=== PATIENT | female | born 1960 | race African-American/Black ===

== ENCOUNTER 2017-12-14 12:31 | Observation (INO) | payer OTHER ==
[2017-12-14] VITALS (9 sets, daily range): BP systolic 123–249; BP diastolic 85–151; PULSE 62–100; RESP 14–16; TEMP 98.5; O2SAT 98–100
[~2017-12-14] VITALS: Ht 162.6 cm; Wt 58.1 kg
[~2017-12-14 12:31] MED LIST: 1-ME1LIQ PO; CLON.1 PO; FAMO20TA2 PO; HYDR-3533 PO; HYDR12.56 PO; LEVE500 PO; METH750T2 PO; NIFE60TA8 PO
[2017-12-14] MEDS ORDERED: niCARdipine INJ 25 MG in SODIUM CHLOR 0.9% 250 ML INJ 240 ML IV PRN (12:45)
[2017-12-14] MEDS ORDERED: SODIUM CHLORIDE 0.9% FLUSH 10 ML FLUSH IVF PRN (12:45)
[2017-12-14] MEDS ORDERED: HYDR-3516 PO (13:00)
[2017-12-14 13:04] LABS: AUTOMATED NEUTROPHIL # 1.8 TH/MM3 (1.8-7.7); BASOPHIL % 0.5 % (0.0-2.0); EOSINOPHIL # 0.1 TH/MM3 (0-0.4); EOSINOPHIL % 1.4 % (0.0-4.0); HEMATOCRIT 35.5 % (35.0-46.0); HEMOGLOBIN 12.2 GM/DL (11.6-15.3); LYMPH % 46.5 % (9.0-44.0); LYMPHOCYTE # 1.9 TH/MM3 (1.0-4.8); MEAN CELL VOLUME 90.7 FL (80.0-100.0); MEAN CORPUSCULAR HEMOGLOBIN 31.2 PG (27.0-34.0); MEAN CORPUSCULAR HGB CONC 34.4 % (32.0-36.0); MEAN PLATELET VOLUME 7.3 FL (7.0-11.0); MONO % 8.3 % (0.0-8.0); MONOCYTE # 0.3 TH/MM3 (0-0.9); NEUT % 43.3 % (16.0-70.0); PLATELET COUNT 205 TH/MM3 (150-450); RED BLOOD COUNT 3.91 MIL/MM3 (4.00-5.30); RED CELL DISTRIBUTION WIDTH 13.9 % (11.6-17.2); WHITE BLOOD COUNT 4.2 TH/MM3 (4.0-11.0)
[2017-12-14 13:10] LABS: INTERNATIONAL NORMALIZED RATIO 1.1 RATIO; PROTHROMBIN TIME - PATIENT 10.7 SEC (9.8-11.6)
--- NOTE | 2017-12-14 13:19 | PD ---
HPI Chief Complaint: Neuro Symptoms/ Deficits Time Seen by Provider: 12:36 Travel History International Travel<30 days: No Contact w/Intl Traveler<30days: No Traveled to known affect area: No History of Present Illness HPI 57-year-old female was brought in emergently from triage for a aphasia and possible strokelike symptoms. Patient was stuttering and seemed anxious. She was unable to give a significant history. The time of onset initially was unknown since there was no friend or family member around her. Patient was severely hypertensive upon arrival with systolic blood pressure of over 250. Upon asking patient said she did have a headache as well. Her past medical record was checked and patient was admitted on 11/06/2017 for intracranial bleed related to hypertension. Patient was discharged a few days ago. Apparently she was at patient assistance trying to get an appointment and was telling them that she has not been taking her medication at which point they noticed that she has started to stutter. They brought her over to triage. Patient was not complaining of any unilateral weakness. [facility] Past Medical History Narrative Medical List of her past medical, surgical, social and family history reviewed from the nursing note. Cardiovascular Problems: Yes Cerebrovascular Accident: Yes Gastrointestinal Disorders: Yes (Diverticulitis) Hypertension: Yes Tetanus Vaccination: Unknown Influenza Vaccination: No ?: Not Past Surgical History Abdominal Surgery: Yes (sygmoid ) Other Surgery: Yes (partial colectomy, lap band) Social History Alcohol Use: No Tobacco Use: Yes Substance Use: No Allergies-Medications (Allergen,Severity, Reaction): Coded Allergies: penicillin G (Unverified Allergy, Unknown, 12/14/17) Comments List of her allergies reviewed from the nursing note. Reported Meds & Prescriptions Reported Meds & Active Scripts Active Narrative Medication List of her home medications reviewed from the nursing note. Review of Systems ROS Limitations: Altered Mental Status Except as stated in HPI: all other systems reviewed are Neg Physical Exam Narrative GENERAL: Awake, confused, difficulty speaking, anxious SKIN: Focused skin assessment warm/dry. HEAD: Atraumatic. Normocephalic. EYES: Pupils equal and round. No scleral icterus. No injection or drainage. ENT: No nasal bleeding or discharge. Mucous membranes pink and moist. NECK: Trachea midline. No JVD. CARDIOVASCULAR: Regular rate and rhythm. No murmur appreciated. RESPIRATORY: No accessory muscle use. Clear to auscultation. Breath sounds equal bilaterally. GASTROINTESTINAL: Abdomen soft, non-tender, nondistended. Hepatic and splenic margins not palpable. MUSCULOSKELETAL: No obvious deformities. No clubbing. No cyanosis. No edema. NEUROLOGICAL: Awake but appears to be confused. No obvious cranial nerve deficits. Increased tone of all 4 extremities with limited movement. Stuttering speech. PSYCHIATRIC: appears to be extremely anxious Data Data Last Documented VS Orders Orders Ct Brain W/O Iv Contrast(Rout) (12/14/17 ) Nicardipine Inj (Cardene Inj) (12/14/17 12:45) Electrocardiogram (12/14/17 12:37) Prothrombin Time / Inr (Pt) (12/14/17 12:37) Complete Blood Count With Diff (12/14/17 12:37) Basic Metabolic Panel (Bmp) (12/14/17 12:37) Troponin I (12/14/17 12:37) Urinalysis - C+S If Indicated (12/14/17 12:37) Chest, Single Ap (12/14/17 12:37) Ecg Monitoring (12/14/17 12:37) Iv Access Insert/Monitor (12/14/17 12:37) Oximetry (12/14/17 12:37) Sodium Chloride 0.9% Flush (Ns Flush) (12/14/17 12:45) Drug Screen, Random Urine (12/14/17 13:26) Potassium Chloride (Kcl) (12/14/17 13:45) Labs Laboratory Tests Test 12/14/17 12:35 12/14/17 13:40 White Blood Count 4.2 TH/MM3 Red Blood Count 3.91 MIL/MM3 Hemoglobin 12.2 GM/DL Hematocrit 35.5 % Mean Corpuscular Volume 90.7 FL Mean Corpuscular Hemoglobin 31.2 PG Mean Corpuscular Hemoglobin Concent 34.4 % Red Cell Distribution Width 13.9 % Platelet Count 205 TH/MM3 Mean Platelet Volume 7.3 FL Neutrophils (%) (Auto) 43.3 % Lymphocytes (%) (Auto) 46.5 % Monocytes (%) (Auto) 8.3 % Eosinophils (%) (Auto) 1.4 % Basophils (%) (Auto) 0.5 % Neutrophils # (Auto) 1.8 TH/MM3 Lymphocytes # (Auto) 1.9 TH/MM3 Monocytes # (Auto) 0.3 TH/MM3 Eosinophils # (Auto) 0.1 TH/MM3 Basophils # (Auto) 0.0 TH/MM3 CBC Comment DIFF FINAL Differential Comment Prothrombin Time 10.7 SEC Prothromb Time International Ratio 1.1 RATIO Blood Urea Nitrogen 9 MG/DL Creatinine 0.72 MG/DL Random Glucose 91 MG/DL Calcium Level 9.4 MG/DL Sodium Level 141 MEQ/L Potassium Level 3.1 MEQ/L Chloride Level 106 MEQ/L Carbon Dioxide Level 28.1 MEQ/L Anion Gap 7 MEQ/L Estimat Glomerular Filtration Rate 102 ML/MIN Troponin I LESS THAN 0.02 NG/ML Urine Color LIGHT-YELLOW Urine Turbidity CLEAR Urine pH 7.0 Urine Specific [place] 1.008 Urine Protein NEG mg/dL Urine Glucose (UA) NEG mg/dL Urine Ketones NEG mg/dL Urine Occult Blood NEG Urine Nitrite NEG Urine Bilirubin NEG Urine Urobilinogen LESS THAN 2.0 MG/DL Urine Leukocyte Esterase NEG Urine RBC LESS THAN 1 /hpf Urine WBC 1 /hpf Urine Squamous Epithelial Cells <1 /hpf Urine Hyaline Casts 1 /lpf Microscopic Urinalysis Comment CATH-CULT NOT IND Urine Opiates Screen NEG Urine Barbiturates Screen NEG Urine Amphetamines Screen NEG Urine Benzodiazepines Screen NEG Urine Cocaine Screen NEG Urine Cannabinoids Screen NEG MDM Medical Decision Making Medical Screen Exam Complete: Yes Emergency Medical Condition: Yes Medical Record Reviewed: Yes Interpretation(s) Twelve-lead EKG was reviewed by me. Normal sinus rhythm, left axis deviation, diffuse nonspecific ST-T wave changes, LVH by voltage criteria. Heart rate of 68 bpm. Differential Diagnosis Intracranial bleed, hypertensive encephalopathy, hypertensive crisis, electrolyte abnormality Narrative Course 1:25 PM upon assessment patient symptoms did not present like stroke. I did not call a stroke alert. Awaiting for the CT to be read. Awaiting further blood test results. Patient was started on Cardene drip. She would eventually have to be admitted. Patient has started to talk normal at this point once the blood pressure started to come down. 2:[address] is read as negative. Patient has started to speak better and moving all 4 extremities. She continues to be on the Cardene drip. I discussed the case with the hospitalist was except that the patient. Critical Care Narrative Aggregate critical care time was 45 minutes. Time to perform other separately billable procedures was not included in the critical care time. My time did not include minutes spent treating any other patients simultaneously or on activities that did not directly contribute to the patient's treatment. The services I provided to this patient were to treat and/or prevent clinically significant deterioration that could result in: Hypertensive encephalopathy, hypertensive emergency, Emelyn malone I provided critical care services requiring my management, as noted below: Chart data review, documentation time, medication orders and management, vital sign assessments/reviewing monitor data, ordering and reviewing lab tests, ordering and interpreting/reviewing x-rays and diagnostic studies, care of the patient and discussion of the patient with the admitting physicians. Procedures EKG Prior to Arrival: No Diagnosis Primary Impression: Hypertensive emergency Additional Impressions: Hypertensive encephalopathy History of medication noncompliance Admitting Information Admitting Physician Requests: Admit Scripts Famotidine (Famotidine) 20 Mg Tab 20 MG PO Q12HR for stomach, #60 TAB 1 Refill Prov: Angie Salguero 12/15/17 Levetiracetam (Keppra) 500 Mg Tab 1000 MG PO Q12HR for seizure prevention, #60 TAB 1 Refill Prov: Angie Salguero 12/15/17 Nifedipine ER 24 HR (Nifedipine ER 24 HR) 60 Mg Tab 60 MG PO Q12HR for blood pressure, #60 TAB 1 Refill Prov: Angie Salguero 12/15/17 Lauren Taylor MD Dec 14, 2017 13:19
[2017-12-14 13:29] LABS: BICARBONATE 28.1 MEQ/L (21.0-32.0); BLOOD UREA NITROGEN 9 MG/DL (7-18); CALCIUM 9.4 MG/DL (8.5-10.1); CHLORIDE 106 MEQ/L (98-107); CREATININE 0.72 MG/DL (0.50-1.00); GLOMERULAR FILTRATION RATE 102 ML/MIN (>89); GLUCOSE,RANDOM 91 MG/DL (74-106); SODIUM (NA) 141 MEQ/L (136-145)
[2017-12-14 13:33] LABS: TROPONIN I LESS THAN 0.02 NG/ML (0.02-0.05)
[2017-12-14] MEDS ORDERED: POTASSIUM CHLORIDE 20 MEQ CONTROLLED RELEASE TAB PO ONE (13:45)
--- NOTE | 2017-12-14 14:16 | RADRPT ---
EXAM DATE/TIME: 12/14/2017 12:46 [facility] COMPARISON: CT BRAIN W/O CONTRAST, November 07, 2017, 10:50. INDICATIONS : Altered mental status. Weakness. Hypertension. RADIATION DOSE: 56.35 CTDIvol (mGy) MEDICAL HISTORY : Hypertension. Diverticulosis. Recent brain hemorrhage. SURGICAL HISTORY : Partial colectomy. ENCOUNTER: Initial ACUITY: 1 day PAIN SCALE: 4/10 LOCATION: cranial TECHNIQUE: Multiple contiguous axial images were obtained of the head. Using automated exposure control and adj ustment of the mA and/or kV according to patient size, radiation dose was kept as low as reasonably a chievable to obtain optimal diagnostic quality images. DICOM format image data is available electro nically for review and comparison. FINDINGS: There is a small focus of encephalomalacia in the left temporal region. Patchy mild diminished attenu ation deep white matter which appears chronic and benign. No evidence of intracranial hemorrhage or m ass. Nothing to suggest acute infarction. The extracranial structures are benign and intact. CONCLUSION: No acute intracranial findings. Roberto Herrera MD on December 14, 2017 at 12:53 Board Certified Radiologist. This report was verified electronically.
--- NOTE | 2017-12-14 14:55 | RADRPT ---
EXAM DATE/TIME: 12/14/2017 13:07 [facility] COMPARISON: CHEST SINGLE AP, November 11, 2017, 9:49. INDICATIONS : Weakness, short of breath MEDICAL HISTORY : None. SURGICAL HISTORY : None. ENCOUNTER: Initial ACUITY: 1 day PAIN SCORE: Non-responsive. LOCATION: Bilateral chest FINDINGS: Improved aeration in the left lower lung zone. No new focal pleural-parenchymal opacities. Cardiomedi astinal contours are stable. Remainder of exam is unchanged. CONCLUSION: 1. Improved left lung base atelectasis. 2. No acute abnormality. Guevara Smith MD on December 14, 2017 at 14:52 Board Certified Radiologist. This report was verified electronically.
[2017-12-14] MEDS ORDERED: NALOXONE HCL 0.4 MG/ML AMP IV PUSH PRN (15:00)
[2017-12-14] MEDS ORDERED: NIFEdipine 60 MG SUSTAINED RELEASE TAB PO ONE (15:00)
[2017-12-14] MEDS ORDERED: SODIUM CHLORIDE 0.9% FLUSH 10 ML FLUSH IV FLUSH PRN (15:00)
[2017-12-14] MEDS ORDERED: MAGNESIUM HYDROXIDE SUSP 30 ML CUP PO PRN (15:00)
[2017-12-14] MEDS ORDERED: cloNIDine HCL 0.1 MG TAB PO PRN (15:00)
[2017-12-14] MEDS ORDERED: ONDANSETRON HCL 4 MG/2 ML VIAL IVP PRN (15:00)
[2017-12-14] MEDS ORDERED: ACETAMINOPHEN 325 MG TAB PO PRN (15:00)
--- NOTE | 2017-12-14 15:03 | HHI.HP ---
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 Patient was recently admitted [place] [facility] on [place]/[facility]/17 with hemorrhagic CVA. Patient was DC 11/14/17 to rehab then DC from rehab to home about two weeks ago. Patient was DC with pill packs. Patient reports that she ran out of medication Wednesday. Patient was at patient assistance today trying to obtain help with getting medications when she began to have a headache, confusion and slurred speech. In the ER patient was started on a Cardene drip and neurological symptoms resolve. At this time patient is tearful and frustrated that she is having such a hard time obtaining her medications. Patient reports generalized headache is still present but improving. Patient denies new focal weakness, SOB, chest pain, N/V/D/C, fevers or chills. CT of the head reviewed: No acute intracranial findings Review of Systems Constitutional: DENIES: Fatigue, Fever, Chills Respiratory: DENIES: Cough, Sputum production, Shortness of breath Cardiovascular: DENIES: Chest pain, Dyspnea on Exertion, Lower Extremity Edema Gastrointestinal: DENIES: Abdominal pain, Constipation, Diarrhea, Nausea, Vomiting Musculoskeletal: COMPLAINS OF: Back pain, DENIES: Joint pain, Muscle aches Neurologic: COMPLAINS OF: Abnormal gait, Headache, Localized weakness (RLE weakness residual from preious CVA) Psychiatric: COMPLAINS OF: Confusion, DENIES: Anxiety, Depression Past Family Social History Past Medical History 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, HTN, diverticulitis with sigmoidectomy and L4-L5 disc disease and CHF resolved after bariatric surgery Past Surgical History bilateral salpingectomy secondary to ectopic x 2 Gastric bypass [id number] 2009 in [place] sigmoidectomy right ankle bone spur removed Reported Medications Famotidine 20 Mg Tab 20 Mg PO Q12HR Keppra (Levetiracetam) 500 Mg Tab 1,000 Mg PO Q12HR Nifedipine ER 24 HR (Nifedipine) 60 Mg Tab 60 Mg PO Q12HR Catapres (Clonidine) 0.1 Mg Tab 0.1 Mg PO Q6H PRN Hydrocodone-Acetaminophen 5-325 mg Tab 1 Tab PO Q6H PRN Allergies: Coded Allergies: penicillin G (Unverified Allergy, Unknown, 12/14/17) Family History noncontributory Social History Tobacco use since age 14-15 0.5 PPD now trying to quit denies ETOH use Physical Exam Vital Signs Vital Signs Date Time Temp Pulse Resp B/P (MAP) Pulse Ox O2 Delivery O2 Flow Rate FiO2 12/14/17 14:25 62 16 139/88 (105) 98 Room Air 12/14/17 13:31 65 14 151/95 (113) 98 Room Air 12/14/17 13:19 100 249/151 12/14/17 12:54 65 16 195/123 (147) 98 Room Air 12/14/17 12:47 98.5 100 16 249/151 (183) 100 Physical Exam GENERAL: This is a well-nourished, well-developed patient, tearful SKIN: No rashes, ecchymoses or lesions. Cool and dry. HEAD: Atraumatic. Normocephalic. No temporal or scalp tenderness. EYES: Extraocular motions intact. No scleral icterus. No injection or drainage. CARDIOVASCULAR: Regular rate and rhythm RESPIRATORY: Clear to auscultation. Breath sounds equal bilaterally. GASTROINTESTINAL: Abdomen soft, non-tender, nondistended. MUSCULOSKELETAL: Extremities without clubbing, cyanosis, or edema. No joint tenderness, effusion, or edema noted. No calf tenderness. Negative Homans sign bilaterally. NEUROLOGICAL: Awake and alert. Motor and sensory grossly within normal limits. Five out of 5 muscle strength in all muscle groups, with the exception of RLE which is residual from prior CVA. Normal speech. Laboratory Laboratory Tests Test 12/14/17 12:35 12/14/17 13:40 White Blood Count 4.2 Red Blood Count 3.91 Hemoglobin 12.2 Hematocrit 35.5 Mean Corpuscular Volume 90.7 Mean Corpuscular Hemoglobin 31.2 Mean Corpuscular Hemoglobin Concent 34.4 Red Cell Distribution Width 13.9 Platelet Count 205 Mean Platelet Volume 7.3 Neutrophils (%) (Auto) 43.3 Lymphocytes (%) (Auto) 46.5 Monocytes (%) (Auto) 8.3 Eosinophils (%) (Auto) 1.4 Basophils (%) (Auto) 0.5 Neutrophils # (Auto) 1.8 Lymphocytes # (Auto) 1.9 Monocytes # (Auto) 0.3 Eosinophils # (Auto) 0.1 Basophils # (Auto) 0.0 CBC Comment DIFF FINAL Differential Comment Prothrombin Time 10.7 Prothromb Time International Ratio 1.1 Blood Urea Nitrogen 9 Creatinine 0.72 Random Glucose 91 Calcium Level 9.4 Sodium Level 141 Potassium Level 3.1 Chloride Level 106 Carbon Dioxide Level 28.1 Anion Gap 7 Estimat Glomerular Filtration Rate 102 Troponin I LESS THAN 0.02 Urine Opiates Screen NEG Urine Barbiturates Screen NEG Urine Amphetamines Screen NEG Urine Benzodiazepines Screen NEG Urine Cocaine Screen NEG Urine Cannabinoids Screen NEG Result Diagram: 12/14/17 1235 12/14/17 1235 Imaging Last Impressions Chest X-Ray 12/14/17 1237 Signed Impressions: Service Date/Time: Thursday, December 14, 2017 13:07 - CONCLUSION: 1. Improved left lung base atelectasis. 2. No acute abnormality. Guevara Smith MD Head CT 12/14/17 0000 Signed Impressions: Service Date/Time: Thursday, December 14, 2017 12:46 - CONCLUSION: No acute intracranial findings. MD Patience Snyderi VTE Risk Assessment Caprini VTE Risk Assessment: No/Low Risk (score <= 1) Caprini Risk Assessment Model Point Value = 1 Point Value = 2 Point Value = 3 Point Value = 5 Age 41-60 Minor surgery BMI > 25 kg/m2 Swollen legs Varicose veins or History of unexplained or recurrent spontaneous Oral contraceptives or hormone replacement Sepsis (< 1 month) Serious lung disease, including pneumonia (< 1 month) Abnormal pulmonary function Acute myocardial infarction Congestive heart failure (< 1 month) History of inflammatory bowel disease Medical patient at bed rest Age 61-74 Arthroscopic surgery Major open surgery (> 45 min) Laparoscopic surgery (> 45 min) Malignancy Confined to bed (> 72 hours) Immobilizing plaster cast Central venous access Age >= 75 History of VTE Family history of VTE Factor V Leiden Prothrombin [id number] Lupus anticoagulant Anticardiolipin antibodies Elevated serum homocysteine Heparin-induced thrombocytopenia Other congenital or acquired thrombophilia Stroke (< 1 month) Elective arthroplasty Hip, pelvis, or leg fracture Acute spinal cord injury (< 1 month) Prophylaxis Regimen Total Risk Factor Score Risk Level Prophylaxis Regimen 0-1 Low Early ambulation 2 Moderate Order ONE of the following: *Sequential Compression Device (SCD) *Heparin 5000 units SQ BID 3-4 Higher Order ONE of the following medications: *Heparin 5000 units SQ TID *Enoxaparin/Lovenox 40 mg SQ daily (WT < 150 kg, CrCl > 30 mL/min) *Enoxaparin/Lovenox 30 mg SQ daily (WT < 150 kg, CrCl > 10-29 mL/min) *Enoxaparin/Lovenox 30 mg SQ BID (WT < 150 kg, CrCl > 30 mL/min) AND/OR *Sequential Compression Device (SCD) 5 or more Highest Order ONE of the following medications: *Heparin 5000 units SQ TID (Preferred with Epidurals) *Enoxaparin/Lovenox 40 mg SQ daily (WT < 150 kg, CrCl > 30 mL/min) *Enoxaparin/Lovenox 30 mg SQ daily (WT < 150 kg, CrCl > 10-29 mL/min) *Enoxaparin/Lovenox 30 mg SQ BID (WT < 150 kg, CrCl > 30 mL/min) AND *Sequential Compression Device (SCD) Assessment and Plan Problem List: (1) Hypertensive encephalopathy ICD Codes: I67.4 - Hypertensive encephalopathy Status: Acute Plan: This is a 57 year old AA female patient with a past medical history which includes 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 Patient was DC 11/14/17 to rehab then DC from rehab to home about two weeks ago. Patient was DC with pill packs. Patient reports that she ran out of medication Wednesday. Patient was at patient assistance today trying to obtain help with getting medications when she began to have a headache , confusion and slurred speech. In the ER patient was started on a Cardene drip and neurological symptoms resolve. Hypertensive urgency HTN (hypertension) - Nicardipine drip initiated in ED - initiate nifedipine XL 60 mg PO BID, wean Cardene drip to off goal SBP < 150 - clonidine 0.1 MG PO as needed Hemorrhagic stroke 11/06/18 - Due to uncontrolled hypertension - CT reviewed and reveals: No acute intracranial findings - Monitor serial neuro checks Seizure - Due to above - Keppra loaded in the ED, Continue Keppra 1 g every 12 hours DVT GI prophylaxis - SASCHA/SCDs - No pharmacological DVT prophylaxis due to recent ICH 11/06/17 (2) HTN (hypertension) ICD Codes: I10 - Essential (primary) hypertension (3) Seizure ICD Codes: R56.9 - Unspecified convulsions Vianney Onofre Dec 14, 2017 15:03
[2017-12-14] MEDS: ACETAMINOPHEN/HYDROcodone 325 MG/5 MG TAB PO PRN (19:58)
[2017-12-14] MEDS: SODIUM CHLORIDE 0.9% FLUSH 10 ML FLUSH IV FLUSH SCH (21:12)
[2017-12-14] MEDS: FAMOTIDINE 20 MG TAB PO SCH (21:40)
[2017-12-14] MEDS: levETIRAcetam 500 MG TAB PO SCH (21:40)
[2017-12-14] MEDS: DOCUSATE SODIUM 50 MG/SENNA 8.6 MG TAB PO SCH (21:52)
[2017-12-14] MEDS: NIFEdipine 60 MG SUSTAINED RELEASE TAB PO SCH (21:52)
[2017-12-15] VITALS (13 sets, daily range): BP systolic 105–147; BP diastolic 69–93; PULSE 48–64; RESP 16–20; TEMP 97.8–98.7; O2SAT 96–100
[2017-12-15] MEDS: ACETAMINOPHEN/HYDROcodone 325 MG/5 MG TAB PO PRN ×2 (01:50→16:56)
[2017-12-15 08:25] LABS: AUTOMATED NEUTROPHIL # 0.8 TH/MM3 (1.8-7.7); BASOPHIL % 0.8 % (0.0-2.0); EOSINOPHIL # 0.1 TH/MM3 (0-0.4); EOSINOPHIL % 2.8 % (0.0-4.0); HEMATOCRIT 32.7 % (35.0-46.0); HEMOGLOBIN 11.2 GM/DL (11.6-15.3); LYMPH % 57.6 % (9.0-44.0); LYMPHOCYTE # 1.6 TH/MM3 (1.0-4.8); MEAN CELL VOLUME 89.7 FL (80.0-100.0); MEAN CORPUSCULAR HEMOGLOBIN 30.6 PG (27.0-34.0); MEAN CORPUSCULAR HGB CONC 34.1 % (32.0-36.0); MEAN PLATELET VOLUME 7.5 FL (7.0-11.0); MONOCYTE # 0.3 TH/MM3 (0-0.9); NEUT % 29.8 % (16.0-70.0); PLATELET COUNT 197 TH/MM3 (150-450); RED BLOOD COUNT 3.65 MIL/MM3 (4.00-5.30); RED CELL DISTRIBUTION WIDTH 13.8 % (11.6-17.2); WHITE BLOOD COUNT 2.8 TH/MM3 (4.0-11.0)
[2017-12-15 08:48] LABS: BICARBONATE 28.2 MEQ/L (21.0-32.0); CALCIUM 8.9 MG/DL (8.5-10.1); CREATININE 0.6 MG/DL (0.50-1.00)
[2017-12-15] MEDS: DOCUSATE SODIUM 50 MG/SENNA 8.6 MG TAB PO SCH ×2 (09:00→21:00)
[2017-12-15] MEDS: FAMOTIDINE 20 MG TAB PO SCH ×2 (09:26→21:37)
[2017-12-15] MEDS: NIFEdipine 60 MG SUSTAINED RELEASE TAB PO SCH ×2 (09:26→20:01)
[2017-12-15] MEDS: levETIRAcetam 500 MG TAB PO SCH ×2 (09:26→21:38)
[2017-12-15] MEDS: SODIUM CHLORIDE 0.9% FLUSH 10 ML FLUSH IV FLUSH SCH ×2 (09:27→21:40)
[2017-12-15 09:37] LABS: BASOPHILS 1 % (0-2); LYMPHOCYTES 63 % (9-44); MONOCYTES 3 % (0-8); NEUTROPHIL # MANUAL DIFF 0.9 TH/MM3 (1.8-7.7); POLYS (SEG NEUTROPHILS) 31 % (16-70)
[2017-12-15 09:38] LABS: KERATOCYTES OCC (NORMAL); OVALOCYTES 1+ (NORMAL)
--- NOTE | 2017-12-15 09:39 | HHI.PR ---
Subjective Remarks Pt reports a slight headache today She has been ambulating without difficulty She is anxious about discharge as she does not think she will be able to obtain her medications. Objective Vitals Vital Signs Date Time Temp Pulse Resp B/P (MAP) Pulse Ox O2 Delivery O2 Flow Rate FiO2 12/15/17 08:22 98.0 53 20 117/79 (92) 98 12/15/17 07:27 96 21 12/15/17 06:13 21 12/15/17 04:46 98.1 57 16 147/93 (111) 100 12/15/17 04:02 51 12/15/17 01:39 98.5 58 16 135/89 (104) 98 12/14/17 22:05 12/14/17 20:30 64 16 123/85 (98) 99 Room Air 12/14/17 20:00 66 16 147/86 (106) 99 Room Air 12/14/17 19:45 64 129/82 12/14/17 19:00 69 16 144/86 (105) 98 Room Air 12/14/17 17:33 78 16 175/95 (121) 98 Room Air 12/14/17 16:10 75 14 140/86 (104) 98 Room Air 12/14/17 14:25 62 16 139/88 (105) 98 Room Air 12/14/17 13:31 65 14 151/95 (113) 98 Room Air 12/14/17 13:19 100 249/151 12/14/17 12:54 65 16 195/123 (147) 98 Room Air 12/14/17 12:47 98.5 100 16 249/151 (183) 100 Result Diagram: 12/15/17 0634 12/15/17 0634 Other Results Laboratory Tests Test 12/14/17 12:35 12/14/17 13:40 12/15/17 06:34 White Blood Count 4.2 TH/MM3 2.8 TH/MM3 Red Blood Count 3.91 MIL/MM3 3.65 MIL/MM3 Hemoglobin 12.2 GM/DL 11.2 GM/DL Hematocrit 35.5 % 32.7 % Mean Corpuscular Volume 90.7 FL 89.7 FL Mean Corpuscular Hemoglobin 31.2 PG 30.6 PG Mean Corpuscular Hemoglobin Concent 34.4 % 34.1 % Red Cell Distribution Width 13.9 % 13.8 % Platelet Count 205 TH/MM3 197 TH/MM3 Mean Platelet Volume 7.3 FL 7.5 FL Neutrophils (%) (Auto) 43.3 % 29.8 % Lymphocytes (%) (Auto) 46.5 % 57.6 % Monocytes (%) (Auto) 8.3 % 9.0 % Eosinophils (%) (Auto) 1.4 % 2.8 % Basophils (%) (Auto) 0.5 % 0.8 % Neutrophils # (Auto) 1.8 TH/MM3 0.8 TH/MM3 Lymphocytes # (Auto) 1.9 TH/MM3 1.6 TH/MM3 Monocytes # (Auto) 0.3 TH/MM3 0.3 TH/MM3 Eosinophils # (Auto) 0.1 TH/MM3 0.1 TH/MM3 Basophils # (Auto) 0.0 TH/MM3 0.0 TH/MM3 CBC Comment DIFF FINAL AUTO DIFF Differential Comment Prothrombin Time 10.7 SEC Prothromb Time International Ratio 1.1 RATIO Blood Urea Nitrogen 9 MG/DL 6 MG/DL Creatinine 0.72 MG/DL 0.60 MG/DL Random Glucose 91 MG/DL 90 MG/DL Calcium Level 9.4 MG/DL 8.9 MG/DL Sodium Level 141 MEQ/L 141 MEQ/L Potassium Level 3.1 MEQ/L 3.5 MEQ/L Chloride Level 106 MEQ/L 106 MEQ/L Carbon Dioxide Level 28.1 MEQ/L 28.2 MEQ/L Anion Gap 7 MEQ/L 7 MEQ/L Estimat Glomerular Filtration Rate 102 ML/MIN 126 ML/MIN Troponin I LESS THAN 0.02 NG/ML Urine Opiates Screen NEG Urine Barbiturates Screen NEG Urine Amphetamines Screen NEG Urine Benzodiazepines Screen NEG Urine Cocaine Screen NEG Urine Cannabinoids Screen NEG Imaging Last Impressions Chest X-Ray 12/14/17 1237 Signed Impressions: Service Date/Time: Thursday, December 14, 2017 13:07 - CONCLUSION: 1. Improved left lung base atelectasis. 2. No acute abnormality. Guevara Smith MD Head CT 12/14/17 0000 Signed Impressions: Service Date/Time: Thursday, December 14, 2017 12:46 - CONCLUSION: No acute intracranial findings. 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 Patient was DC 11/14/17 to rehab then DC from rehab to home about two weeks ago. Patient was DC with pill packs. Patient reports that she ran out of medication Wednesday. Patient was at patient assistance on 12/14/17 trying to obtain help with getting medications when she began to have a headache , confusion and slurred speech. In the ER patients BP was 249/151 and she was started on a Cardene drip and neurological symptoms resolved. Hypertensive urgency HTN (hypertension) - Nicardipine drip initiated in ED and this was able to be weaned off - Pt was initiated on Nifedipine XL 60 mg PO BID and Clonidine 0.1 MG PO as needed with improvement in her BP - Pt reports that she cannot afford co-pays for any medications and was hoping that she could get the medications for free otherwise she wont be able to take the medication. Hemorrhagic stroke in 11/06/18 - Due to uncontrolled hypertension - CT reviewed and reveals: No acute intracranial findings - Monitor serial neuro checks Seizure - Due to above - Keppra loaded in the ED, Continue Keppra 1 g every 12 hours DVT prophylaxis - SASCHA/SCDs - No pharmacological DVT prophylaxis due to recent ICH 11/06/17 (2) HTN (hypertension) ICD Codes: I10 - Essential (primary) hypertension (3) Seizure ICD Codes: R56.9 - Unspecified convulsions Assessment and Plan Patient examined. Assessment and plan formulated with Angie Salguero PA-C. I agree with the above. severe htn resolved with resuming home meds d/c home today......awaiting confirmation that pt can get her meds upon d/c...she says she can't afford a copay......would like to avoid a readmission. await [facility] callback. Angie Salguero Dec 15, 2017 09:39 Jonas Sosa MD Dec 15, 2017 10:29
[2017-12-15] MEDS ORDERED: FAMO20TA2 PO (10:23)
[2017-12-15] MEDS ORDERED: CLON.1 PO (10:23)
[2017-12-15] MEDS ORDERED: NIFE60TA8 PO (10:23)
[2017-12-15] MEDS ORDERED: LEVE500 PO (10:23)
--- NOTE | 2017-12-15 10:30 | HHI.DCPOC ---
Discharge Care Plan Diagnosis: (1) Hypertensive encephalopathy (2) History of medication noncompliance (3) HTN (hypertension) (4) Seizure (5) Hypertensive emergency (6) Hemorrhagic cerebrovascular accident (CVA) Goals to Promote Your Health * To prevent worsening of your condition and complications * To maintain your health at the optimal level Directions to Meet Your Goals Take your medications as prescribed Follow your dietary instruction Follow activity as directed Keep your appointments as scheduled Take your immunizations and boosters as scheduled If your symptoms worsen call your PCP, if no PCP go to Urgent Care Center or Emergency Room Smoking is Dangerous to Your Health. Avoid second hand smoke Call the 24-hour hour crisis hotline for domestic abuse at Angie Salguero Dec 15, 2017 10:30
--- NOTE | 2017-12-15 13:03 | EKG ---
Date Performed: 12/14/2017 Time Performed: 12:59:33 PTAGE: 57 years EKG: Sinus rhythm POSSIBLE LEFT ATRIAL ENLARGEMENT INCOMPLETE RIGHT BUNDLE BRANCH BLOCK POSSIBLE LEFT VENTRICULAR HYPE RTROPHY POSSIBLE SEPTAL MYOCARDIAL INFARCTION ABNORMAL ECG NO PREVIOUS TRACING DOCTOR: Prince Wyatt Interpretating Date/Time 12/15/2017 12:55:50
[2017-12-15] MEDS ORDERED: TEMAZEPAM 15 MG CAP PO PRN (21:45)
[2017-12-16 01:44] VITALS: BP 128/80; PULSE 50; RESP 16; TEMP 97.8; O2SAT 99
[2017-12-16 04:00] VITALS: PULSE 46
[2017-12-16 04:01] VITALS: BP 137/84; PULSE 51; RESP 16; TEMP 98.3; O2SAT 99
[2017-12-16 08:59] LABS: BILIRUBIN, URINE NEG (NEG); BLOOD, URINE NEG (NEG); GLUCOSE,URINE NEG (NEG); HYALINE CAST, URINE 1 /lpf (RARE); KETONE, URINE NEG (NEG); NITRITE,URINE NEG (NEG); SQUAMOUS EPITHELIAL CELL URINE <1 /hpf (0-5); URINE COLOR LIGHT-YELLOW (YELLW/STRAW); URINE LEUKOCYTE ESTERASE NEG (NEG)
[2017-12-16] MEDS: DOCUSATE SODIUM 50 MG/SENNA 8.6 MG TAB PO SCH (09:00)
--- NOTE | 2017-12-16 09:32 | HHI.PR ---
Subjective Remarks Patient is rather upset about the uncertainty of her insurance issues She is quite tearful at the time of the interview today Denies any specific complaints otherwise She denies any headaches or dizziness. Objective Vitals Vital Signs Date Time Temp Pulse Resp B/P (MAP) Pulse Ox O2 Delivery O2 Flow Rate FiO2 12/16/17 04:01 98.3 51 16 137/84 (101) 99 12/16/17 04:00 46 12/16/17 01:44 97.8 50 16 128/80 (96) 99 12/15/17 23:58 48 12/15/17 20:01 59 12/15/17 19:48 97.8 58 18 106/73 (84) 100 12/15/17 19:10 96 12/15/17 18:06 20 12/15/17 16:28 98.7 64 20 121/88 (99) 96 12/15/17 15:59 62 12/15/17 12:17 98.6 53 18 105/69 (81) 97 12/15/17 10:46 64 Result Diagram: 12/15/17 0634 12/15/17 0634 Other Results Laboratory Tests Test 12/14/17 12:35 12/14/17 13:40 12/15/17 06:34 White Blood Count 4.2 TH/MM3 2.8 TH/MM3 Red Blood Count 3.91 MIL/MM3 3.65 MIL/MM3 Hemoglobin 12.2 GM/DL 11.2 GM/DL Hematocrit 35.5 % 32.7 % Mean Corpuscular Volume 90.7 FL 89.7 FL Mean Corpuscular Hemoglobin 31.2 PG 30.6 PG Mean Corpuscular Hemoglobin Concent 34.4 % 34.1 % Red Cell Distribution Width 13.9 % 13.8 % Platelet Count 205 TH/MM3 197 TH/MM3 Mean Platelet Volume 7.3 FL 7.5 FL Neutrophils (%) (Auto) 43.3 % 29.8 % Lymphocytes (%) (Auto) 46.5 % 57.6 % Monocytes (%) (Auto) 8.3 % 9.0 % Eosinophils (%) (Auto) 1.4 % 2.8 % Basophils (%) (Auto) 0.5 % 0.8 % Neutrophils # (Auto) 1.8 TH/MM3 0.8 TH/MM3 Lymphocytes # (Auto) 1.9 TH/MM3 1.6 TH/MM3 Monocytes # (Auto) 0.3 TH/MM3 0.3 TH/MM3 Eosinophils # (Auto) 0.1 TH/MM3 0.1 TH/MM3 Basophils # (Auto) 0.0 TH/MM3 0.0 TH/MM3 CBC Comment DIFF FINAL AUTO DIFF Differential Comment FINAL DIFF MANUAL Prothrombin Time 10.7 SEC Prothromb Time International Ratio 1.1 RATIO Blood Urea Nitrogen 9 MG/DL 6 MG/DL Creatinine 0.72 MG/DL 0.60 MG/DL Random Glucose 91 MG/DL 90 MG/DL Calcium Level 9.4 MG/DL 8.9 MG/DL Sodium Level 141 MEQ/L 141 MEQ/L Potassium Level 3.1 MEQ/L 3.5 MEQ/L Chloride Level 106 MEQ/L 106 MEQ/L Carbon Dioxide Level 28.1 MEQ/L 28.2 MEQ/L Anion Gap 7 MEQ/L 7 MEQ/L Estimat Glomerular Filtration Rate 102 ML/MIN 126 ML/MIN Troponin I LESS THAN 0.02 NG/ML Urine Color LIGHT-YELLOW Urine Turbidity CLEAR Urine pH 7.0 Urine Specific Vendor 1.008 Urine Protein NEG mg/dL Urine Glucose (UA) NEG mg/dL Urine Ketones NEG mg/dL Urine Occult Blood NEG Urine Nitrite NEG Urine Bilirubin NEG Urine Urobilinogen LESS THAN 2.0 MG/DL Urine Leukocyte Esterase NEG Urine RBC LESS THAN 1 /hpf Urine WBC 1 /hpf Urine Squamous Epithelial Cells <1 /hpf Urine Hyaline Casts 1 /lpf Microscopic Urinalysis Comment CATH-CULT NOT IND Urine Opiates Screen NEG Urine Barbiturates Screen NEG Urine Amphetamines Screen NEG Urine Benzodiazepines Screen NEG Urine Cocaine Screen NEG Urine Cannabinoids Screen NEG Differential Total Cells Counted 100 Neutrophils % (Manual) 31 % Lymphocytes % 63 % Monocytes % 3 % Eosinophils % 2 % Basophils % 1 % Neutrophils # (Manual) 0.9 TH/MM3 Atypical Lymphocytes % Platelet Estimate NORMAL Platelet Morphology Comment NORMAL Ovalocytes 1+ Keratocytes OCC Imaging Last Impressions Chest X-Ray 12/14/17 1237 Signed Impressions: Service Date/Time: Thursday, December 14, 2017 13:07 - CONCLUSION: 1. Improved left lung base atelectasis. 2. No acute abnormality. Guevara Smith MD Head CT 12/14/17 0000 Signed Impressions: Service Date/Time: Thursday, December 14, 2017 12:46 - CONCLUSION: No acute intracranial findings. 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 Patient was DC 11/14/17 to rehab then DC from rehab to home about two weeks ago. Patient was DC with pill packs. Patient reports that she ran out of medication Wednesday. Patient was at patient assistance on 12/14/17 trying to obtain help with getting medications when she began to have a headache , confusion and slurred speech. In the ER patients BP was 249/151 and she was started on a Cardene drip and neurological symptoms resolved. Hypertensive urgency HTN (hypertension) - Nicardipine drip initiated in ED and this was able to be weaned off - Pt was initiated on Nifedipine XL 60 mg PO BID and Clonidine 0.1 MG PO as needed with improvement in her BP - Pt reports that she cannot afford co-pays for any medications and was hoping that she could get the medications for free otherwise she wont be able to take the medication. We are awaiting confirmation from [facility] regarding her insurance status. If she is terminated with [facility] we will request that [place] [facility] help with getting prescriptions and followup arranged. Hemorrhagic stroke in 11/06/18 - Due to uncontrolled hypertension - CT reviewed and reveals: No acute intracranial findings - Monitor serial neuro checks Seizure - Due to above - Keppra loaded in the ED, Continue Keppra 1 g every 12 hours DVT prophylaxis - SASCHA/SCDs - No pharmacological DVT prophylaxis due to recent ICH 11/06/17 (2) HTN (hypertension) ICD Codes: I10 - Essential (primary) hypertension (3) Seizure ICD Codes: R56.9 - Unspecified convulsions Assessment and Plan Patient examined. Assessment and plan formulated with Angie Salguero PA-C. I agree with the above. awaiting a plan to get her bp and sz meds on d/c. pt says she has no money. Angie Salguero Dec 16, 2017 09:32 Jonas Sosa MD Dec 16, 2017 11:49
[2017-12-16] MEDS: FAMOTIDINE 20 MG TAB PO SCH (10:02)
[2017-12-16] MEDS: levETIRAcetam 500 MG TAB PO SCH (10:02)
[2017-12-16] MEDS: NIFEdipine 60 MG SUSTAINED RELEASE TAB PO SCH (10:02)
[2017-12-16] MEDS: SODIUM CHLORIDE 0.9% FLUSH 10 ML FLUSH IV FLUSH SCH (10:02)
[2017-12-16 10:31] VITALS: BP 140/83; PULSE 85; RESP 18; TEMP 98.2; O2SAT 97
[2017-12-16] MEDS: ACETAMINOPHEN/HYDROcodone 325 MG/5 MG TAB PO PRN (11:30)
[2017-12-16 13:03] VITALS: BP 135/88; PULSE 62; RESP 18; TEMP 98; O2SAT 98
== END 2017-12-16 16:58 | disposition home or self-care (01) ==
LOC: NEPE 12:31 → NEDA 14:49 → NEPFCDU 22:12
PROVIDERS: ADMIT Hospitalist; ATTEND Hospitalist
DX: I16.1 Hypertensive emergency (principal); I11.0 Hypertensive heart disease with heart failure; I50.9 Heart failure, unspecified; I67.4 Hypertensive encephalopathy; I62.9 Nontraumatic intracranial hemorrhage, unspecified; J98.11 Atelectasis; R94.31 Abnormal electrocardiogram [ECG] [EKG]; R56.9 Unspecified convulsions; Z72.0 Tobacco use; Z79.899 Other long term (current) drug therapy; Z86.73 Personal history of transient ischemic attack (TIA), and cerebral infarction without residual deficits; Z91.14 Patient's other noncompliance with medication regimen; Z98.84 Bariatric surgery status
CPT/HCPCS: 70450; 71045; 80048; 80307; 81001; 84484; 85007; 85025; 85027; 85610; 92610; 93005; 96374; 96375; 97116; 97162; 99291; G0378; G8987; G8988; G8996; G8997; G8998; J2405; J7050

== ENCOUNTER 2018-05-18 17:08 | Observation (INO) ==
[2018-05-18] MEDS ORDERED: Sod Chloride 0.9% Inj 1,000 ML IV.CONT SCH (17:30)
--- NOTE | 2018-05-18 17:48 | XR ---
EXAM DATE: 05/18/2018 5:40 PM EDT AGE/SEX: 57 years / Female INDICATIONS: Short of breath, possible stroke. CLINICAL DATA: This is the patient's initial encounter. Patient reports that signs and symptoms have been present for 1 day and indicates a pain score of 0/10. MEDICAL/SURGICAL HISTORY: Stroke. None. [place] [facility] [place]. . FINDINGS: A single AP view of the chest demonstrates the lungs to be symmetrically aerated without evidence of mass, infiltrate or effusion. Mild cardiomegaly. Osseous structures are intact. CONCLUSION: Mild compensated cardiomegaly otherwise negative Electronically signed by: Kendall Espino MD 05/18/2018 5:47 PM EDT
--- NOTE | 2018-05-18 18:19 | CT ---
EXAM DATE: 05/18/2018 6:14 PM EDT AGE/SEX: 57 years / Female INDICATIONS: Right facial droop; cephalgia, blurred vision. CLINICAL DATA: This is the patient's initial encounter. Patient reports that signs and symptoms have been present for 1 day and indicates a pain score of 3/10. MEDICAL/SURGICAL HISTORY: None. None. RADIATION DOSE: 56.35 CTDI (mGy) COMPARISON: [facility] – [place] BRAIN W/O CONTRAST, 12/14/2017. . TECHNIQUE: CT of the head without contrast. Using automated exposure control and adjustment of the mA and/or kV according to patient size, radiation dose was kept as low as reasonably achievable to ob tain optimal diagnostic quality images. DICOM format image data is available electronically for revi ew and comparison. FINDINGS: Cerebrum: The ventricles are normal for age. No evidence of midline shift, mass lesion, hemorrhage or acute infarction. There is decreased density in the cerebral white matter particularly over the p arietal and frontal regions. The low density extends into the anterior limb of the internal capsule o n the left. There appears to be a small focal area of low signal in the posterior medial left tempora l region which may represent a small area of encephalomalacia. This was present previously. No extraa xial fluid collections are seen. Posterior Fossa: The cerebellum and brainstem are intact. The 4th ventricle is midline. The cerebe llopontine angle is unremarkable. Extracranial: The visualized portion of the orbits is intact. Skull: The calvaria is intact. No evidence of skull fracture. CONCLUSION: 1. Decreased density in the cerebral white matter likely from demyelination. This is nonspecific. It could be secondary to small vessel ischemic change versus other underlying demyelinating conditions. 2. Acute hemorrhage or mass effect is not seen. Electronically signed by: Roberto Dunn MD 05/18/2018 6:18 PM EDT
[2018-05-18 18:39] LABS: Baso % (Auto) 0.7 % (0.0-2.0); Eos # (Auto) 0.1 th/mm3 (0.0-0.4); Eos % (Auto) 1.2 % (0.0-4.0); Hematocrit 35.3 % (35.0-46.0); Hemoglobin 11.9 gm/dL (11.6-15.3); Lymph # (Auto) 1.4 th/mm3 (1.0-4.8); Lymph % (Auto) 30.3 % (9.0-44.0); Mean Corpuscular HGB Conc 33.8 % (32.0-36.0); Mean Corpuscular Hemoglobin 30.9 pg (27.0-34.0); Mean Corpuscular Volume 91.5 fL (80.0-100.0); Mean Platelet Volume 8.3 fL (7.0-11.0); Mono # (Auto) 0.3 th/mm3 (0.0-0.9); Mono % (Auto) 6.9 % (0.0-8.0); Neut # (Auto) 2.9 th/mm3 (1.8-7.7); Neut % (Auto) 60.9 % (16.0-70.0); Platelet Count 245 th/mm3 (150-450); Red Blood Count 3.86 mil/mm3 (4.00-5.30); Red Cell Distribution Width 13.5 % (11.6-17.2); White Blood Count 4.8 th/mm3 (4.0-11.0)
[2018-05-18 18:53] LABS: Activated Partial Thrombo Time 20.2 sec (24.3-30.1); Prothrombin Time 10.2 sec (9.8-11.6)
--- NOTE | 2018-05-18 18:53 | ED ---
HPI General Chief complaint: Neuro Symptoms/Deficit Stated complaint: Neuro Symptoms/EVAC Time Seen by Provider: 05/18/18 17:21 Source: patient, family and old records reviewed History of Present Illness HPI narrative: Is a 57-year-old woman presents emerged from quitting of headache right-sided facial droop since yesterday. She has a history of a hemorrhagic CVA in November of this past year. She has done well since then. Only other medical she developed some headache and pressure behind her eyes as well as some blurry vision with a right-sided facial droop. Blurry vision is most resolved with the facial droop has persisted. She is also some right- sided headache. She was try to make an appointment with a neurologist for follow-up with her primary care physician referred her to the emergency department. No recent illness or injury. Symptoms been constant since onset. No aggravating or relieving factors. No other complaints. Related Data Home Medications Medication Instructions Recorded Confirmed acetaminophen [Tylenol Extra 1,000 mg PO Q6H PRN 05/18/18 05/18/18 Strength] escitalopram oxalate [Lexapro] 5 mg PO DAILY 05/18/18 05/18/18 esomeprazole magnesium 20 mg PO DAILY PRN 05/18/18 05/18/18 gabapentin 300 mg PO DAILY 05/18/18 05/18/18 hydrochlorothiazide 25 mg PO DAILY 05/18/18 05/18/18 levetiracetam [Keppra] 1,000 mg PO BID 05/18/18 05/18/18 nifedipine 60 mg PO DAILY 05/18/18 05/18/18 Allergies Allergy/AdvReac Type Severity Reaction Status Date / Time penicillin G Allergy Unknown Rash Verified 05/18/18 17:33 Review of Systems ROS Unobtainable All other systems reviewed negative except as stated in HPI [facility] Medical History Medical History Acute diverticulitis (Acute) Cerebral vascular accident (Acute) Depression (Acute) Ectopic (Acute) History of open sigmoidectomy (Acute) Hypertension (Acute) Seizure (Acute) Surgical History Surgical History History of gastric bypass (Acute) Family History Family History Other CKD (chronic kidney disease) Family history of hypertension Social History Social History Substance History: No History of Abuse Second Hand Smoke Exposure: No Smoking Status: Current every day smoker (Smokes half pack per day and has done so for approximately 40 years) Tobacco Type: Cigarettes Cigarettes Per Day: 10 Years Smoked: 40 Pack-Years: 20.00 How Often Do You Have a Drink Containing Alcohol: Monthly or less Hx Recent Travel: No Recent Out of Country Travel within the Last 8 Weeks: No Immunization History Tetanus Immunization: >5 Years Hx Influenza Vaccine This Season: No Exam Narrative Exam Narrative: GENERAL: Well-appearing 57-year-old woman, nontoxic, no acute distress. SKIN: Focused skin assessment warm/dry. HEAD: Atraumatic. Normocephalic. EYES: Pupils equal and round. No scleral icterus. No injection or drainage. ENT: No nasal bleeding or discharge. Right-sided facial droop, with flattening of the nasolabial fold, forehead sparing. NECK: Trachea midline. No JVD. CARDIOVASCULAR: Regular rate and rhythm. No murmur appreciated. RESPIRATORY: No accessory muscle use. Clear to auscultation. Breath sounds equal bilaterally. GASTROINTESTINAL: Abdomen soft, non-tender, nondistended. Hepatic and splenic margins not palpable. MUSCULOSKELETAL: No obvious deformities. No clubbing. No cyanosis. No edema. NEUROLOGICAL: Awake and alert. Right-sided facial droop with forehead sparing. Strength full and equal in the upper and lower extremities. She complains of some subjective sensory changes in the right arm this and tingling. No apparent weakness. No drift. Lower extremity strength is normal. Normal mental status, normal speech. PSYCHIATRIC: Appropriate mood and affect; insight and judgment normal. Course Initial Documented Vital Signs Temperature 97.7 F 05/18/18 17:23 Pulse Rate 73 05/18/18 17:23 Respiratory Rate 18 05/18/18 17:23 Blood Pressure 104/73 05/18/18 17:23 Pulse Oximetry 97 05/18/18 17:23 Last Documented Vital Signs Temperature 97.3 F L 05/18/18 17:59 Pulse Rate 75 05/19/18 03:05 Respiratory Rate 18 05/19/18 00:00 Blood Pressure 158/93 H 05/19/18 03:05 Pulse Oximetry 97 05/18/18 23:00 Sign Out Sign Out Data: Patient Sign Out occurred on 05/18/18 at 19:14. Patient's care was discussed, and care was transferred from Prince Baxter MD to Jennifer Aguirre MD. Sign Out Comment: Is a 57-year-old woman with strokelike symptoms, CT negative, history of ICH, likely admission. Last updated by Prince Baxter MD at 05/18/18 19:12 Medical Decision Making MDM Narrative Medical decision making narrative: Is a 57-year-old woman with right-sided facial droop with forehead sparing and a history of intracerebral hemorrhage. Looks well. Suspect new stroke. We will plan on initial workup and admission. @ 7:15 PM Accepted in transfer of care from Dr. wooten for follow-up of pending labs with anticipated admission for CVA At 8:17 PM patient's case discussed with [facility] MD Dr Escudero--admit observation status to Dr. Sosa, request patient to receive aspirin if has not done so already and able to take heart healthy diet. Will be in to see the patient this evening. Lab Data Result diagrams: 05/18/18 17:58 05/18/18 17:58 Lab Results 05/18/18 05/18/18 05/18/18 Range/Units 17:58 17:58 17:58 WBC (4.0-11.0) th/mm3 RBC (4.00-5.30) mil/mm3 Hgb (11.6-15.3) gm/dL Hct (35.0-46.0) % MCV (80.0-100.0) fL MCH (27.0-34.0) pg MCHC (32.0-36.0) % RDW (11.6-17.2) % Plt Count (150-450) th/mm3 MPV (7.0-11.0) fL Neut % (Auto) (16.0-70.0) % Lymph % (Auto) (9.0-44.0) % [place] % (Auto) (0.0-8.0) % Eos % (Auto) (0.0-4.0) % Baso % (Auto) (0.0-2.0) % Neut # (Auto) (1.8-7.7) th/mm3 Lymph # (Auto) (1.0-4.8) th/mm3 [place] # (Auto) (0.0-0.9) th/mm3 Eos # (Auto) (0.0-0.4) th/mm3 Baso # (Auto) (0.0-0.2) th/mm3 WBC Differential Differential Comment PT 10.2 (9.8-11.6) sec INR 1.0 Ratio APTT 20.2 L (24.3-30.1) sec Sodium 142 (136-145) meq/L Potassium 3.4 L (3.5-5.1) meq/L Chloride 106 (98-107) meq/L Carbon Dioxide 25.3 (21.0-32.0) meq/L Anion Gap 11 (5-15) meq/L BUN 15 (7-18) mg/dL Creatinine 0.94 (0.50-1.00) mg/dL Estimated GFR 75 L (>89) mL/min Random Glucose 78 (74-106) mg/dL Calcium 9.1 (8.5-10.1) mg/dL Total Creatine Kinase 124 (26-192) U/L CK-MB (CK-2) 0.7 (0.5-3.6) ng/mL Troponin I Less than 0.02 L (0.02-0.05) ng/mL Urine Color (Yellw/Straw) Urine Clarity (Clear) Urine pH (5.0-8.5) Ur Specific [place] (1.002-1.035) Urine Protein (Neg-Trace) mg/dL Urine Glucose (UA) (Negative) mg/dL Urine Ketones (Negative) mg/dL Urine Occult Blood (Negative) Urine Nitrate (Negative) Urine Bilirubin (Negative) Urine Urobilinogen (Less than 2) mg/dL Ur Leukocyte Esterase (Negative) Urine RBC (0-3) /hpf Urine WBC (0-5) /hpf Ur Squamous Epith Cells (0-5) /hpf Hyaline Casts (0-3) /lpf Urine Mucus (Occasional) /lpf Micro UA Comment Urine Culture Comments Blood Type B Positive Antibody Screen Negative 05/18/18 05/18/18 Range/Units 17:58 19:50 WBC 4.8 (4.0-11.0) th/mm3 RBC 3.86 L (4.00-5.30) mil/mm3 Hgb 11.9 (11.6-15.3) gm/dL Hct 35.3 (35.0-46.0) % MCV 91.5 (80.0-100.0) fL MCH 30.9 (27.0-34.0) pg MCHC 33.8 (32.0-36.0) % RDW 13.5 (11.6-17.2) % Plt Count 245 (150-450) th/mm3 MPV 8.3 (7.0-11.0) fL Neut % (Auto) 60.9 (16.0-70.0) % Lymph % (Auto) 30.3 (9.0-44.0) % [place] % (Auto) 6.9 (0.0-8.0) % Eos % (Auto) 1.2 (0.0-4.0) % Baso % (Auto) 0.7 (0.0-2.0) % Neut # (Auto) 2.9 (1.8-7.7) th/mm3 Lymph # (Auto) 1.4 (1.0-4.8) th/mm3 [place] # (Auto) 0.3 (0.0-0.9) th/mm3 Eos # (Auto) 0.1 (0.0-0.4) th/mm3 Baso # (Auto) 0.0 (0.0-0.2) th/mm3 WBC Differential . Differential Comment Auto diff final PT (9.8-11.6) sec INR Ratio APTT (24.3-30.1) sec Sodium (136-145) meq/L Potassium (3.5-5.1) meq/L Chloride (98-107) meq/L Carbon Dioxide (21.0-32.0) meq/L Anion Gap (5-15) meq/L BUN (7-18) mg/dL Creatinine (0.50-1.00) mg/dL Estimated GFR (>89) mL/min Random Glucose (74-106) mg/dL Calcium (8.5-10.1) mg/dL Total Creatine Kinase (26-192) U/L CK-MB (CK-2) (0.5-3.6) ng/mL Troponin I (0.02-0.05) ng/mL Urine Color Yellow (Yellw/Straw) Urine Clarity Clear (Clear) Urine pH 7.0 (5.0-8.5) Ur Specific [place] 1.009 (1.002-1.035) Urine Protein Negative (Neg-Trace) mg/dL Urine Glucose (UA) Negative (Negative) mg/dL Urine Ketones Trace H (Negative) mg/dL Urine Occult Blood Small H (Negative) Urine Nitrate Negative (Negative) Urine Bilirubin Negative (Negative) Urine Urobilinogen Less than 2 (Less than 2) mg/dL Ur Leukocyte Esterase Negative (Negative) Urine RBC 1 (0-3) /hpf Urine WBC 1 (0-5) /hpf Ur Squamous Epith Cells 3 (0-5) /hpf Hyaline Casts 6 (0-3) /lpf Urine Mucus Few H (Occasional) /lpf Micro UA Comment Culture not ind Urine Culture Comments Culture not ind Blood Type Antibody Screen Imaging Data Radiologist's impression: ITS Impressions Carotid Doppler Study 05/18/18 00:00 CONCLUSION: 1. Right Internal Carotid Artery: No significant stenosis or atherosclerotic plaque is visualized. 2. Left Internal Carotid Artery: No significant stenosis or atherosclerotic plaque is visualized. Chest X-Ray 05/18/18 17:21 CONCLUSION: Mild compensated cardiomegaly otherwise negative Head CT 05/18/18 17:21 CONCLUSION: 1. Decreased density in the cerebral white matter likely from demyelination. This is nonspecific. It could be secondary to small vessel ischemic change versus other underlying demyelinating conditions. 2. Acute hemorrhage or mass effect is not seen. Discharge Plan Discharge Disposition Patient Disposition: 30 Still Patient Discharge Condition Condition: Stable Discharge Details Diagnosis: CVA (cerebrovascular accident) Physicians Team ED Provider: Jennifer Aguirre Primary Care Provider: UNKNOWN, Attending Provider: Jonas Sosa Status ED Status: Admitted Observation Patient
[2018-05-18 19:12] LABS: Anion Gap 11 meq/L (5-15); Blood Urea Nitrogen 15 mg/dL (7-18); Calcium 9.1 mg/dL (8.5-10.1); Carbon Dioxide 25.3 meq/L (21.0-32.0); Chloride 106 meq/L (98-107); Creatine Kinase 124 U/L (26-192); Glomerular Filtration Rate 75 mL/min (>89); Glucose,Random 78 mg/dL (74-106); Sodium 142 meq/L (136-145)
[2018-05-18 19:17] LABS: Potassium 3.4 meq/L (3.5-5.1)
[2018-05-18 19:30] LABS: Creatine Kinase MB 0.7 ng/mL (0.5-3.6)
[2018-05-18 20:22] LABS: Bilirubin,Urine Negative (Negative); Clarity,Urine Clear (Clear); Color,Urine Yellow (Yellw/Straw); Glucose,Urine (UA) Negative (Negative); Hyaline Casts,Urine 6 /lpf (0-3); Leukocyte Esterase,Urine Negative (Negative); Mucus,Urine Few /lpf (Occasional); Nitrite,Urine Negative (Negative); Specific Gravity,Urine 1.009 (1.002-1.035); Squamous Epithelial Cell,Urine 3 /hpf (0-5)
[2018-05-18] MEDS ORDERED: Pantoprazole Sodium 20 MG DR Tablet PO PRN (21:37)
--- NOTE | 2018-05-18 21:57 | P.HP ---
History of Present Illness Service: [facility] adult medicine Primary Care Physician: UNKNOWN Chief Complaint: tingling, numbness, speech difficulty History of Present Illness: Is a 57-year-old woman presents to ER with c/o right UE/LE tingling since appx 10 PM yesterday. She also noted tingling in her right face this morning. Patient reports she was home last night watching TV and noted some tingling in her right upper extremity and thought she may have just fell asleep however the tingling did not go away. Subsequently he developed a brief period of diplopia and reports that she turned the TV off and just went to sleep and hopes that the problem would go away. She awoke this morning she still had tingling in the right arm and also some tingling in the face and right lower extremity. The double vision had resolved. She presented to an extended hours clinic with her insurance company and reported the story as above. She also was noted to have some slight facial droop with apparent difficulty expressing words at times. The extended hours clinic provider contacted [facility] and she was transported to the ER for further evaluation. Since she has been in the ER her paresthesias have persisted in the right upper extremity but she has no more tingling in the face no more facial droop and no more speech problem. She has some tingling in the right lower extremity but believes this has improved as well. 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 She has done overall well since then and BPs have been better controlled. She recently established with PCP and started on lexapro for chronic MDD last week. No other recent medical changes. She also had a right-sided headache last night and early this morning, but this seems to have resolved. No recent illness or injury. No aggravating or relieving factors. No other complaints. No chest pain or shortness of breath. She says this is different than the symptoms she had when she had a brain bleed earlier this year. It appears that she had some expressive aphasia during that time and some cognitive decline. Denies any recent change in her sleeping patterns or habits. Reports that she feels safe in her home but is planning on moving to [place] in a couple of weeks. - Diagnosis (1) Neurological deficit, transient (2) Hypertension (3) Major depression Inpatient Certification: I certify that the inpatient services were ordered in accordance with Medicare regulations governing the order. This includes certification that hospital inpatient services are reasonable and necessary and in the case of services not specified as inpatient-only under 42 CFR 419.22(n), that they are appropriately provided as inpatient services in accordance to with the 2-midnight benchmark under 43 CFR 412.3(e) Estimated Total Length of Stay (Days): 1 Plans for Post Hospital Care: Home Review of Systems Constitutional: Reports fatigue, Reports weakness, Denies anorexia, Denies body ache(s), Denies chills, Denies daytime sleepiness, Denies excessive sweating, Denies fever(s), Denies headache(s), Denies increased appetite, Denies lack of energy, Denies malaise, Denies night sweats, Denies weight gain, Denies weight loss, Denies other Eyes: Reports blurry vision, Reports double vision Ears, Nose, Mouth, and Throat: Denies abnormal hearing, Denies bleeding gums, Denies bad breath, Denies change in voice, Denies dental pain, Denies difficulty swallowing, Denies dizziness, Denies dry mouth, Denies ear discharge , Denies ear pain, Denies facial pain, Denies headache(s), Denies hearing loss, Denies hoarseness, Denies lip swelling, Denies nosebleed, Denies mouth lesions, Denies mouth pain, Denies nasal congestion, Denies nasal discharge, Denies nasal obstruction, Denies nasal trauma, Denies neck lump, Denies neck pain, Denies nose pain, Denies pain with swallowing, Denies poor balance, Denies post nasal drip, Denies ringing in the ears, Denies sinus pain, Denies sinus pressure , Denies sore throat, Denies throat swelling, Denies tongue swelling, Denies other Cardiovascular: Denies chest pain, Denies chest pain at rest, Denies chest pain with activity, Denies excessive sweating, Denies fainting, Denies fast heart rate, Denies foot swelling, Denies generalized swelling, Denies irregular heart rhythm, Denies leg pain with activity, Denies leg sores, Denies leg swelling, Denies lightheadedness, Denies radiating jaw, neck or arm pain, Denies rapid, pounding, or irregular heartbeat, Denies shortness of breath, Denies shortness of breath with activity, Denies shortness of breath when lying down, Denies shortness of breath causing sudden awakening, Denies slow heart rate, Denies other Respiratory: Denies change in phlegm color, Denies chest congestion, Denies cough, Denies coughing up blood, Denies excessive phlegm production, Denies pain on inspiration, Denies pain with cough, Denies shortness of breath, Denies shortness of breath with activity, Denies snoring, Denies stridor, Denies wheezing, Denies other Musculoskeletal: Reports back pain, Reports numbness Neurologic: Reports abnormal speech, Reports headache(s), Reports numbness, Reports tingling, Reports tingling/numbness/burning sensations Psychiatric: Reports anxiety, Reports depression, Reports difficulty concentrating, Reports lack of enjoyment, Reports other Comments: Patient reports that she has had depression since she was a teenager. She has had recurrent thoughts of harming herself or that she be better off not living however she is never had a plan to harm herself and has never attempted to harm herself. She has been on multiple medications for this over the years. This complaint has not changed. Endocrine: Denies cold intolerance, Denies excessive sweating, Denies flushing, Denies heat intolerance, Denies increased hunger, Denies increased thirst, Denies increased urination, Denies rapid, pounding, or irregular heartbeat, Denies other PMFSH - History History Provided By: Medical Record - Medical History Medical History: Medical History (Last Reviewed 05/18/18 @ 18:52 by Prince Baxter MD) Acute diverticulitis Cerebral vascular accident Depression Ectopic History of open sigmoidectomy Hypertension Seizure - Surgical History Surgical History: Surgical History (Last Reviewed 05/18/18 @ 18:52 by Prince Baxter MD) History of gastric bypass - Family History Family History: Family History (Last Updated 05/18/18 @ 21:52 by Salvatore Escudero MD, PhD) Other CKD (chronic kidney disease) Family history of hypertension - Tobacco History Second Hand Smoke Exposure: No Tobacco Use In Past 30 Days: Yes Smoking Status: Current every day smoker (Smokes half pack per day and has done so for approximately 40 years) Tobacco Type: Cigarettes Cigarettes Per Day: 10 Years Smoked: 40 - Alcohol History How Often Do You Have a Drink Containing Alcohol: Monthly or less - Substance Use History Substance History: No History of Abuse - Travel History History of Recent Travel: No Recent Travel Out of the Country Within the Last 8 Weeks: No - Immunization History Tetanus Immunization: >5 Years Hx Influenza Vaccine This Season: No Medications and Allergies Active Medications: Active Medications Aspirin (Aspirin Chew) 81 mg PO DAILY LINO Atorvastatin Calcium (Lipitor) 10 mg PO HS LINO Gabapentin (Neurontin) 300 mg PO DAILY LINO Sodium Chloride (Ns Inj) 1,000 mls @ 70 mls/hr IV.CONT .[id number] LINO Stop: 05/19/18 07:47 Last Admin: 05/18/18 19:04 Dose: 70 mls/hr Non-Formulary Medication (Esomeprazole Magnesium [Esomeprazole Magnesium]) 20 mg PO DAILY PRN PRN Reason: Heartburn Non-Formulary Medication (Levetiracetam [Keppra]) 1,000 mg PO BID LINO Sodium Chloride (Ns Flush) 2 ml IV.FLUSH PRN PRN PRN Reason: FLUSH AFTER USING IV ACCESS Allergies Allergy/AdvReac Type Severity Reaction Status Date / Time penicillin G Allergy Unknown Rash Verified 05/18/18 17:33 Home Medications Medication Instructions Recorded Confirmed Type acetaminophen [Tylenol Extra 1,000 mg PO Q6H PRN 05/18/18 05/18/18 History Strength] escitalopram oxalate [Lexapro] 5 mg PO DAILY 05/18/18 05/18/18 History esomeprazole magnesium 20 mg PO DAILY PRN 05/18/18 05/18/18 History gabapentin 300 mg PO DAILY 05/18/18 05/18/18 History hydrochlorothiazide 25 mg PO DAILY 05/18/18 05/18/18 History levetiracetam [Keppra] 1,000 mg PO BID 05/18/18 05/18/18 History nifedipine 60 mg PO DAILY 05/18/18 05/18/18 History Exam Vital signs: Vital Signs 05/18/18 17:23 05/18/18 17:59 05/18/18 19:16 Temperature 97.7 F 97.3 F L Pulse Rate 73 73 55 L Respiratory Rate 18 18 18 Blood Pressure 104/73 104/73 122/77 Pulse Oximetry 97 97 98 Intake & Output 05/18/18 05/18/18 05/19/18 06:59 18:59 06:59 Weight 54.431 kg Narrative: GENERAL: Sleeping soundly, arouses to voice. Alert and oriented. Cooperative. Speech is normal. SKIN: Warm and dry. HEAD: Normocephalic. Atraumatic. No significant facial droop appreciated. EYES: No scleral icterus. No injection or drainage. Pupils equally round and reactive to light. NECK: Supple, trachea midline. No JVD or lymphadenopathy. No bruit. CARDIOVASCULAR: Regular rate and rhythm without murmurs, gallops, or rubs. RESPIRATORY: Breath sounds equal bilaterally. No accessory muscle use. GASTROINTESTINAL: Abdomen soft, non-tender, nondistended. Bowel sounds normal peer MUSCULOSKELETAL: No cyanosis, or edema. Moves all extremities well. 5 out of 5 strength 4 extremities. No tremor. BACK: Nontender without obvious deformity. NEURO: Cranial nerves II through XII are grossly intact with no obvious focal deficit. Sensation to light touch is symmetric and normal upper and lower extremities. DTRs 1+ at elbows and knees bilaterally. Strength 5 out of 5 in 4 extremities. Results - Labs CBC & Chem 7: 05/18/18 17:58 05/18/18 17:58 Labs: Laboratory Results - last 24 hr 05/18/18 05/18/18 05/18/18 17:58 17:58 17:58 WBC RBC Hgb Hct MCV MCH MCHC RDW Plt Count MPV Neut % (Auto) Lymph % (Auto) [place] % (Auto) Eos % (Auto) Baso % (Auto) Neut # (Auto) Lymph # (Auto) [place] # (Auto) Eos # (Auto) Baso # (Auto) WBC Differential Differential Comment PT 10.2 INR 1.0 APTT 20.2 L Sodium 142 Potassium 3.4 L Chloride 106 Carbon Dioxide 25.3 Anion Gap 11 BUN 15 Creatinine 0.94 Estimated GFR 75 L Random Glucose 78 Calcium 9.1 Total Creatine Kinase 124 CK-MB (CK-2) 0.7 Troponin I Less than 0.02 L Urine Color Urine Clarity Urine pH Ur Specific [place] Urine Protein Urine Glucose (UA) Urine Ketones Urine Occult Blood Urine Nitrate Urine Bilirubin Urine Urobilinogen Ur Leukocyte Esterase Urine RBC Urine WBC Ur Squamous Epith Cells Hyaline Casts Urine Mucus Micro UA Comment Urine Culture Comments Blood Type B Positive Antibody Screen Negative 05/18/18 05/18/18 17:58 19:50 WBC 4.8 RBC 3.86 L Hgb 11.9 Hct 35.3 MCV 91.5 MCH 30.9 MCHC 33.8 RDW 13.5 Plt Count 245 MPV 8.3 Neut % (Auto) 60.9 Lymph % (Auto) 30.3 [place] % (Auto) 6.9 Eos % (Auto) 1.2 Baso % (Auto) 0.7 Neut # (Auto) 2.9 Lymph # (Auto) 1.4 [place] # (Auto) 0.3 Eos # (Auto) 0.1 Baso # (Auto) 0.0 WBC Differential . Differential Comment Auto diff final PT INR APTT Sodium Potassium Chloride Carbon Dioxide Anion Gap BUN Creatinine Estimated GFR Random Glucose Calcium Total Creatine Kinase CK-MB (CK-2) Troponin I Urine Color Yellow Urine Clarity Clear Urine pH 7.0 Ur Specific [place] 1.009 Urine Protein Negative Urine Glucose (UA) Negative Urine Ketones Trace H Urine Occult Blood Small H Urine Nitrate Negative Urine Bilirubin Negative Urine Urobilinogen Less than 2 Ur Leukocyte Esterase Negative Urine RBC 1 Urine WBC 1 Ur Squamous Epith Cells 3 Hyaline Casts 6 Urine Mucus Few H Micro UA Comment Culture not ind Urine Culture Comments Culture not ind Blood Type Antibody Screen - Imaging Impressions Chest X-Ray 05/18/18 17:21 CONCLUSION: Mild compensated cardiomegaly otherwise negative Head CT 05/18/18 17:21 CONCLUSION: 1. Decreased density in the cerebral white matter likely from demyelination. This is nonspecific. It could be secondary to small vessel ischemic change versus other underlying demyelinating conditions. 2. Acute hemorrhage or mass effect is not seen. Caprini VTE Risk Assessment Caprini VTE Risk Assessment: Moderate/High Risk (score >= 2) Caprini Risk Assessment Model: Point Value = 1 Point Value = 2 Point Value = 3 Point Value = 5 Age 41-60 Minor surgery BMI > 25 kg/m2 Swollen legs Varicose veins or History of unexplained or recurrent spontaneous Oral contraceptives or hormone replacement Sepsis (< 1 month) Serious lung disease, including pneumonia (< 1 month) Abnormal pulmonary function Acute myocardial infarction Congestive heart failure (< 1 month) History of inflammatory bowel disease Medical patient at bed rest Age 61-74 Arthroscopic surgery Major open surgery (> 45 min) Laparoscopic surgery (> 45 min) Malignancy Confined to bed (> 72 hours) Immobilizing plaster cast Central venous access Age >= 75 History of VTE Family history of VTE Factor V Leiden Prothrombin [id number] Lupus anticoagulant Anticardiolipin antibodies Elevated serum homocysteine Heparin-induced thrombocytopenia Other congenital or acquired thrombophilia Stroke (< 1 month) Elective arthroplasty Hip, pelvis, or leg fracture Acute spinal cord injury (< 1 month) Prophylaxis Regimen: Total Risk Factor Score Risk Level Prophylaxis Regimen 0-1 Low Early ambulation 2 Moderate Order ONE of the following: *Sequential Compression Device (SCD) *Heparin 5000 units SQ BID 3-4 Higher Order ONE of the following medications: *Heparin 5000 units SQ TID *Enoxaparin/Lovenox 40 mg SQ daily (WT < 150 kg, CrCl > 30 mL/min) *Enoxaparin/Lovenox 30 mg SQ daily (WT < 150 kg, CrCl > 10-29 mL/min) *Enoxaparin/Lovenox 30 mg SQ BID (WT < 150 kg, CrCl > 30 mL/min) AND/OR *Sequential Compression Device (SCD) 5 or more Highest Order ONE of the following medications: *Heparin 5000 units SQ TID (Preferred with Epidurals) *Enoxaparin/Lovenox 40 mg SQ daily (WT < 150 kg, CrCl > 30 mL/min) *Enoxaparin/Lovenox 30 mg SQ daily (WT < 150 kg, CrCl > 10-29 mL/min) *Enoxaparin/Lovenox 30 mg SQ BID (WT < 150 kg, CrCl > 30 mL/min) AND *Sequential Compression Device (SCD) Assessment and Plan - Assessment (1) Neurological deficit, transient Code(s): R29.818 - Other symptoms and signs involving the nervous system Status: Acute Plan: Patient with transient paresthesias. Questionable etiology. No focal deficits on my exam so appears to be improving compared to her reported symptomatology overnight and earlier today. We will continue a low-dose aspirin at this point. I have added a statin as well. Will not be overly aggressive with anticoagulants based on her previous history of intracranial hemorrhage earlier this year. Neuro checks. Check echocardiogram. Place on telemetry. (2) Hypertension Code(s): I10 - Essential (primary) hypertension Status: Acute Plan: BP well controlled. Will hold antihypertensives at this point. (3) Major depression Code(s): F32.9 - Major depressive disorder, single episode, unspecified Status : Chronic Plan: Chronic issue. Will hold the Lexapro for now but likely would benefit from SSRI and counseling. As noted above she has had chronic suicidal thoughts but is never had a plan to harm herself and does not have such a plan now. The thoughts date back to her teenage years per her report. - Plan Code Status: Full Discussed Condition With: Patient and ER provider (3) Major depression Qualifiers: Major depression recurrence: recurrent Active/Remission status: currently active Major depression episode severity: moderate Qualified Code(s): F33.1 - Major depressive disorder, recurrent, moderate
--- NOTE | 2018-05-19 00:14 | US ---
EXAM DATE: 05/18/2018 11:28 PM EDT AGE/SEX: 57 years / Female INDICATIONS: Transient ischemic attack. CLINICAL DATA: This is the patient's initial encounter. Patient reports that signs and symptoms have been present for 1 day and indicates a pain score of 0/10. MEDICAL/SURGICAL HISTORY: . Hypertension. Cerebrovascular accident. Seizure. Acute diverticu litis. Ectopic . Smoker. . Gastric bypass. Sigmoidectomy. COMPARISON: [facility], CTA CAROTID ARTERIES W 3D RECON, 11/06/2017. . VELOCITY PARAMETERS: ICA/CCA Ratio: Right 1.1 , Left 1.1 ICA: Right 61 cm/sec, Left 61 cm/sec CCA: Right 56 cm/sec, Left 54 cm/sec ECA: Right 22 cm/sec, Left 37 cm/sec Vertebral: Right 37 cm/sec antegrade, Left 51 cm/sec antegrade FINDINGS: Right Carotid: No significant plaque is visualized.The waveforms are within normal limits. Left Carotid: No significant plaque is visualized. The waveforms are within normal limits. Other: None. CONCLUSION: 1. Right Internal Carotid Artery: No significant stenosis or atherosclerotic plaque is visualized. 2. Left Internal Carotid Artery: No significant stenosis or atherosclerotic plaque is visualized. Electronically signed by: Guevara Smith MD 05/19/2018 12:13 AM EDT
--- NOTE | 2018-05-19 08:06 | P.PNIM ---
Subjective Interval history: Pt complains of headache this morning BP now starting to rise, 178/103 Physical Exam Vital signs: Vital Signs 05/18/18 17:23 05/18/18 17:59 05/18/18 19:16 Temperature 97.7 F 97.3 F L Pulse Rate 73 73 55 L Respiratory Rate 18 18 18 Blood Pressure 104/73 104/73 122/77 Pulse Oximetry 97 97 98 05/18/18 20:00 05/18/18 23:00 05/19/18 00:00 Temperature Pulse Rate 46 L 46 L Respiratory Rate 16 18 Blood Pressure 134/96 H 134/96 H Pulse Oximetry 98 97 05/19/18 03:05 05/19/18 07:04 Temperature Pulse Rate 75 41 L Respiratory Rate 18 Blood Pressure 158/93 H 158/93 H Pulse Oximetry 97 Intake & Output 05/18/18 05/19/18 05/19/18 18:59 06:59 18:59 Weight 54.431 kg Narrative: GENERAL: NAD, AAOx3 SKIN: Warm and dry. CARDIO: Regular RESP: Breath sounds equal bilaterally. ABD: +BS, soft, non-tender, nondistended. EXT: No edema. Results - Labs CBC & Chem 7: 05/18/18 17:58 05/19/18 06:37 Laboratory Results - last 24 hr 05/18/18 05/18/18 05/18/18 17:58 17:58 17:58 WBC RBC Hgb Hct MCV MCH MCHC RDW Plt Count MPV Neut % (Auto) Lymph % (Auto) [place] % (Auto) Eos % (Auto) Baso % (Auto) Neut # (Auto) Lymph # (Auto) [place] # (Auto) Eos # (Auto) Baso # (Auto) WBC Differential Differential Comment PT 10.2 INR 1.0 APTT 20.2 L Sodium 142 Potassium 3.4 L Chloride 106 Carbon Dioxide 25.3 Anion Gap 11 BUN 15 Creatinine 0.94 Estimated GFR 75 L Random Glucose 78 Calcium 9.1 Total Creatine Kinase 124 CK-MB (CK-2) 0.7 Troponin I Less than 0.02 L Urine Color Urine Clarity Urine pH Ur Specific [place] Urine Protein Urine Glucose (UA) Urine Ketones Urine Occult Blood Urine Nitrate Urine Bilirubin Urine Urobilinogen Ur Leukocyte Esterase Urine RBC Urine WBC Ur Squamous Epith Cells Hyaline Casts Urine Mucus Micro UA Comment Urine Culture Comments Blood Type B Positive Antibody Screen Negative 05/18/18 05/18/18 17:58 19:50 WBC 4.8 RBC 3.86 L Hgb 11.9 Hct 35.3 MCV 91.5 MCH 30.9 MCHC 33.8 RDW 13.5 Plt Count 245 MPV 8.3 Neut % (Auto) 60.9 Lymph % (Auto) 30.3 [place] % (Auto) 6.9 Eos % (Auto) 1.2 Baso % (Auto) 0.7 Neut # (Auto) 2.9 Lymph # (Auto) 1.4 [place] # (Auto) 0.3 Eos # (Auto) 0.1 Baso # (Auto) 0.0 WBC Differential . Differential Comment Auto diff final PT INR APTT Sodium Potassium Chloride Carbon Dioxide Anion Gap BUN Creatinine Estimated GFR Random Glucose Calcium Total Creatine Kinase CK-MB (CK-2) Troponin I Urine Color Yellow Urine Clarity Clear Urine pH 7.0 Ur Specific [place] 1.009 Urine Protein Negative Urine Glucose (UA) Negative Urine Ketones Trace H Urine Occult Blood Small H Urine Nitrate Negative Urine Bilirubin Negative Urine Urobilinogen Less than 2 Ur Leukocyte Esterase Negative Urine RBC 1 Urine WBC 1 Ur Squamous Epith Cells 3 Hyaline Casts 6 Urine Mucus Few H Micro UA Comment Culture not ind Urine Culture Comments Culture not ind Blood Type Antibody Screen - Imaging Impressions Carotid Doppler Study 05/18/18 00:00 CONCLUSION: 1. Right Internal Carotid Artery: No significant stenosis or atherosclerotic plaque is visualized. 2. Left Internal Carotid Artery: No significant stenosis or atherosclerotic plaque is visualized. Chest X-Ray 05/18/18 17:21 CONCLUSION: Mild compensated cardiomegaly otherwise negative Head CT 05/18/18 17:21 CONCLUSION: 1. Decreased density in the cerebral white matter likely from demyelination. This is nonspecific. It could be secondary to small vessel ischemic change versus other underlying demyelinating conditions. 2. Acute hemorrhage or mass effect is not seen. Assessment and Plan - Assessment (1) CVA (cerebrovascular accident) Code(s): I63.9 - Cerebral infarction, unspecified Status: Acute Plan: Neurological deficit, transient - Pt is a 57 y/o female with HTN, depression and hx of hemorrhagic CVA in 2017 who presented to the ED at [facility] on 05/18/18 with c/o right UE/LE tingling the evening prior and tingling in her right face that morning. She also was noted to have some slight facial droop with apparent difficulty expressing words at times. - Head CT (05/18/18) --> 1. Decreased density in the cerebral white matter likely from demyelination. This is nonspecific. It could be secondary to small vessel ischemic change versus other underlying demyelinating conditions. 2. Acute hemorrhage or mass effect is not seen. - Carotid US (05/18/18) --> 1. Right Internal Carotid Artery: No significant stenosis or atherosclerotic plaque is visualized. 2. Left Internal Carotid Artery: No significant stenosis or atherosclerotic plaque is visualized. - Continue a low-dose aspirin and statin. - Will not be overly aggressive with anticoagulants based on her previous history of intracranial hemorrhage earlier this year. - Neuro checks - 2D echocardiogram is pending - Telemetry Hypertension - BP now starting to rise this morning, 178/103 - She is normally on Procardia 60mg po daily and HCTZ - Given her recent hx of hemorrhagic CVA we will resume Procardia this morning, watch the BP trend Major depression - Chronic issue. - She recently established with PCP and started on Lexapro for chronic MDD last week. - Will hold the Lexapro for now but likely would benefit from SSRI and counseling. - Pt reportedly has had chronic suicidal thoughts but is never had a plan to harm herself and does not have such a plan now. The thoughts date back to her teenage years per her report. The exam, history, and the medical decision-making described in the above note were completed with the assistance of the mid-level provider. I reviewed and agree with the findings presented. I attest that I had a [id number] encounter with the patient on the same day, and personally performed and documented my assessment and findings in the medical record. Pt with right side parasthesias and ?demyelinating changes on mri. recent hemorrhagic cva. neurology pending.
[2018-05-19] MEDS: levETIRAcetam 500 MG Tablet PO SCH ×2 (08:48→21:45)
[2018-05-19] MEDS: Gabapentin 300 MG Capsule PO SCH (08:49)
[2018-05-19 10:05] LABS: Anion Gap 9 meq/L (5-15); Calcium 8.7 mg/dL (8.5-10.1); Carbon Dioxide 28.1 meq/L (21.0-32.0); Chloride 107 meq/L (98-107); Glucose,Random 65 mg/dL (74-106); Potassium 3.3 meq/L (3.5-5.1); Sodium 144 meq/L (136-145)
[2018-05-19 10:13] LABS: Blood Urea Nitrogen 12 mg/dL (7-18); Chol/HDL Ratio 1.75 Ratio; Cholesterol 154 mg/dL (120-200); Glomerular Filtration Rate Greater Than 89 mL/min (>89); LDL Cholesterol,Calculated 57 mg/dL (0-99); Triglycerides 47 mg/dL (42-150)
--- NOTE | 2018-05-19 12:17 | ECHRPT ---
Indication: CVA/TIA CONCLUSIONS The left ventricular systolic function is normal with an estimated ejection fraction in the range of 60-65%. Normal left ventricular size. Wall thickness is normal. No regional wall motion abnormalities are present. Trace mitral valve regurgitation. The pulmonary valve is not well visualized. BP: / HR: Rhythm: Sinus MEASUREMENTS (Male / Female) Normal Values Technical Quality:Excellent 2D ECHO LV Diastolic Diameter PLAX 4.5 cm 4.2 - 5.9 / 3.9 - 5.3 cm LV Systolic Diameter PLAX 3.3 cm IVS Diastolic Thickness 1.1 cm 0.6 - 1.0 / 0.6 - 0.9 cm LVPW Diastolic Thickness 1.1 cm 0.6 - 1.0 / 0.6 - 0.9 cm LV Relative Wall Thickness 0.5 RV Internal Dim ED PLAX 3.0 cm LVOT Diameter 2.0 cm LA Systolic Diameter LX 3.7 cm 3.0 - 4.0 / 2.7 - 3.8 cm LV Ejection Fraction MOD 4C 64.3 % LV Ejection Fraction 4C AL 65.3 % M-MODE Aortic Root Diameter MM 2.2 cm LA Systolic Diameter MM 4.0 cm LA Ao Ratio MM 1.8 AV Cusp Separation MM 2.0 cm DOPPLER AV Peak Velocity 113.0 cm/s AV Peak Gradient 5.1 mmHg LVOT Peak Velocity 102.0 cm/s LVOT Peak Gradient 4.2 mmHg AV Area Cont Eq pk 2.8 cm MV Area PHT 2.8 cm Mitral E Point Velocity 56.3 cm/s Mitral A Point Velocity 53.8 cm/s Mitral E to A Ratio 1.0 LV E' Lateral Velocity 7.9 cm/s Mitral E to LV E' Lateral Ratio 7.1 LV E' Septal Velocity 5.2 cm/s Mitral E to LV E' Septal Ratio 10.9 PV Peak Velocity 80.1 cm/s PV Peak Gradient 2.6 mmHg FINDINGS LEFT VENTRICLE The left ventricular systolic function is normal with an estimated ejection fraction in the range of 60-65%. Normal left ventricular size. Wall thickness is normal. No regional wall motion abnormalities are present. RIGHT VENTRICLE Normal right ventricular size and systolic function. LEFT ATRIUM The left atrial size is normal. RIGHT ATRIUM The right atrial size is normal. ATRIAL SEPTUM Normal atrial septal thickness without atrial level shunting by limited color doppler interrogation. AORTA The aortic root and proximal ascending aorta are normal in size on limited imaging. MITRAL VALVE Structurally normal mitral valve. Trace mitral valve regurgitation. AORTIC VALVE Trileaflet aortic valve. No aortic valve stenosis or regurgitation. TRICUSPID VALVE Structurally normal tricuspid valve. No tricuspid valve stenosis or regurgitation. PULMONARY VALVE The pulmonary valve is not well visualized. VESSELS The inferior vena cava is normal in size. PERICARDIUM No pericardial effusion. Prince Wyatt MD, FACC (Electronically Signed) Final Date:19 May 2018 12:15
--- NOTE | 2018-05-19 13:03 | MR ---
EXAM DATE: 05/19/2018 12:47 PM EDT AGE/SEX: 57 years / Female INDICATIONS: . Numbness and tingling. CLINICAL DATA: This is the patient's subsequent encounter. Patient reports that signs and symptoms h ave been present for 2 days and indicates a pain score of 0/10. MEDICAL/SURGICAL HISTORY: None. Gastric bypass. COMPARISON: No prior exams available for comparison. TECHNIQUE: Multiplanar, multisequence MRI examination of the cervical spine was performed without co ntrast. FINDINGS: Vertebrae: Normal vertebral body height. Homogeneous marrow signal. No compression fracture injurie s are demonstrated. No abnormal bone marrow edema is demonstrated. There are some mild degenerative t ype changes involving the cervical spine. Alignment: Normal. Cord: Normal configuration and signal. Post Fossa: The cerebellar tonsils are normal in position. C2-C3: The thecal sac has a normal configuration. There is no evidence of disc herniation or spinal canal stenosis. The neural foramina are patent bilaterally. C3-C4: Mild broad-based bulging. The neural foramina are patent bilaterally. C4-C5: Focal left paracentral disc protrusion/extrusion. The neural foramina. Patent bilaterally. C5-C6: Mild diffuse broad-based bulging. The neural foramina are patent bilaterally. C6-C7: Broad-based bulging as well as some focal right paracentral bulging/protrusion. The neural fo ramina are patent bilaterally. C7-T1: No epidural impressions seen. CONCLUSION: 1. There is focal left paracentral disc protrusion/extrusion at C4-5. 2. There is broad-based bulging as well as some focal right mild paracentral bulging/protrusion at C 6-7. 3. Mild broad-based bulging C3-4 and C5-6. 4. Mild degenerative changes are seen throughout the cervical spine. Electronically signed by: Cristo Mcwilliams MD 05/19/2018 1:01 PM EDT
--- NOTE | 2018-05-19 13:39 | MR ---
EXAM DATE: 05/19/2018 12:33 PM EDT AGE/SEX: 57 years / Female INDICATIONS: . Numbness and tingling. CLINICAL DATA: This is the patient's subsequent encounter. Patient reports that signs and symptoms h ave been present for 2 days and indicates a pain score of 0/10. MEDICAL/SURGICAL HISTORY: None. Gastric bypass. COMPARISON: [facility] [place] W/O CONTRAST, 05/19/2018. C, CT HEAD W/O CONTRAST, 05/18/2018. . TECHNIQUE: Multiplanar, multisequence examination of the brain was performed without contrast. FINDINGS: Cerebrum: The ventricles are normal for age. No evidence of midline shift, mass lesion, hemorrhage or acute infarction. No extraaxial fluid collections are seen. The pituitary gland and suprasellar cistern are normal in configuration. White Matter: There are multiple focal areas of increased signal seen throughout the cerebral white matter. There is focal areas of increased signal within the central and right lateral aspect of the m idbrain. There appears to be a small focal area of signal abnormality within the anterior aspect of t he corpus callosum. Posterior Fossa: The cerebellum and brainstem are intact. The 4th ventricle is midline. The cerebel lopontine angle is unremarkable. The cerebellar tonsils are normal in position. Diffusion Imaging: No focal areas of restricted diffusion are seen. No evidence of acute infarction . Extracranial: The visualized portions of the orbits and paranasal sinuses are unremarkable. CONCLUSION: 1. No definite acute areas of hemorrhage or mass effect are seen. 2. Multiple areas of signal throughout the cerebral and pontine white matter consistent with [place]. This could be from underlying demyelinating conditions. Electronically signed by: Roberto Dunn MD 05/19/2018 1:38 PM EDT
--- NOTE | 2018-05-19 13:40 | MR ---
EXAM DATE: 05/19/2018 12:32 PM EDT AGE/SEX: 57 years / Female INDICATIONS: . Numbness and tingling. CLINICAL DATA: This is the patient's subsequent encounter. Patient reports that signs and symptoms h ave been present for 2 days and indicates a pain score of 0/10. MEDICAL/SURGICAL HISTORY: None. Gastric bypass. COMPARISON: [facility] – [place], MR HEAD W/O CONTRAST, 05/19/2018. . TECHNIQUE: 3D [id number] MRA was performed. Source images, multiplanar STS MIP, and 3D volum e MIP reconstructions were reviewed. FINDINGS: There is excellent visualization of the major intracranial arteries out to the second-order branch ve ssels. There is no evidence for aneurysm, vessel truncation or stenosis, and no evidence for vascula r malformation. CONCLUSION: 1. Negative MRA Cow ([place]) non contrast. 2. No evidence of aneurysm, vascular malformation, steno-occlusive disease or vasculopathy. Electronically signed by: Armando Ryan MD 05/19/2018 1:39 PM EDT
[2018-05-19 16:36] LABS: Hemoglobin A1c 5.3 % (4.3-6.0)
--- NOTE | 2018-05-19 20:20 | MB ---
cc: Dieudonne Schaeffer MD DATE: 05/19/2018 HISTORY OF PRESENT ILLNESS: A 57-year-old right-handed woman with history of hypertension, who really has been very healthy otherwise and then in 10/2017, she had a left temporal spontaneous cortical hemorrhage. CTA of the neck and [place] were normal at that time. She was put on Keppra 500 b.i.d. and says she may have had a seizure at that time at the onset. Nevertheless, she, about 10 p.m. Wednesday, noticed that she has some tingling and cold feeling on the right arm, which spread to the right hand, the face and the leg. She still has a little bit of numbness in the right upper arm now. No twitching, no seizures, odd smells, tastes or gerald vu. She has not woken up, wet the bed or bit her tongue. Right face looks a little droopier than unusual, according to her godson. She also had some numbness on her tongue and her lips. She had some double vision, which cleared. The next day, she still had a little bit of numbness so came to the hospital, which she was admitted on 05/18/2018. MRI of the brain has been negative for any acute infarct, just see old changes. There was no chest pain or palpitations when this episode came on, but she did have a headache, when she does not usually have a headache, a right frontal headache she had. PAST MEDICAL HISTORY: As above. She had an episode in December with sudden onset of difficulty talking. It looks like neurology did not see her at that time. Headache, confusion, slurred speech. Blood pressure was high. She was put on a Cardene drip. Neurological symptoms resolved. She was put on Keppra. They thought maybe it was a seizure. She was severely hypertensive with a systolic over 250. REVIEW OF SYSTEMS: Denies any diabetes, hypercholesterolemia, CABG, stent, angioplasty, A-Fib, Coumadin, renal, hepatic or pulmonary disease, thyroid disease, lupus, ulcer, cancer. SOCIAL HISTORY: She is a smoker, and I have asked her to quit. Not a drinker. Lives with her godson. FAMILY HISTORY: Negative for cancer. Positive for seizures in her brother. Negative for stroke. MEDICATIONS AT HOME: Nifedipine, hydrochlorothiazide, omeprazole, Tylenol, Keppra written as 1000 b.i.d., gabapentin 300 a day, Lexapro 5 mg a day. PHYSICAL EXAMINATION: VITAL SIGNS: Afebrile, 51, 16. Lowest pulse rate 41, 125/76. NECK: There were no carotid bruits. HEART: Regular rhythm. I did not detect a murmur. NEUROLOGIC: Pupils are equal. Visual bowers full. Extraocular movements intact without nystagmus. There is a slight droopiness to the right corner of the mouth, I would say a moderate one, but she moves it symmetrically. Tongue was midline. There was no drift. She had normal strength, upper and lower extremities bilaterally. DTRs were trace throughout. Toes downgoing bilaterally. Pinprick is intact throughout, maybe slightly diminished on the right upper arm compared to the left, otherwise intact, face, arm and leg bilaterally. Passing movements are symmetric and normal, especially in the right hand. Speech fluent. She is not aphasic. No apparent distress. LABORATORY DATA: CBC is normal. UA was negative. Basic metabolic profile is essentially normal. Troponin negative. CPK, LDL cholesterol, coags all normal. Her LFTs were normal in 2017. TSH was normal in November of this year. Urine drug screen was normal in December of this year. MRI of the brain shows about 6-8 small areas, which could be amyloid angiopathy-type areas. She has got an old infarct in the brainstem fairly large on the right side. There is no acute infarct seen. She had an MRA of the [place] that was normal. She had an old moderate sized hemorrhage back in 10/2017. I reviewed those films. The left temporal lobe really did not have much of any flare image on that left temporal lobe left over from that hemorrhage. 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 I really do not see any blood products on the GRE in that left temporal lobe region. I do see some in the mid brain. IMPRESSION: It possibly could have been a small seizure. There is no acute stroke on the MRI and I note her MRA of the head here is negative as is a carotid ultrasound. She also had what appears to be a syncopal episode about 2 weeks ago versus could have been a small seizure. Echocardiogram here was normal at this time. I would add Vimpat onto her Keppra. She is currently taking 1000 twice a day and will start on Vimpat 100 b.i.d. and continue her on the Keppra. She will get a Holter monitor placed, and she could go home tomorrow after the Holter is off. An EEG has been performed, results are pending. I am hesitant to put her on any blood thinners with the amyloid and the history of hemorrhage, and we will follow her up in the office. She does not drive and I also told him not to swim alone, take a bath alone, do any other high-risk activities. MD CHRISTIANE Lemons/ANNITA , 07:39 PM , 08:19 PM
[2018-05-19] MEDS: Lacosamide 100 MG Tablet PO SCH (21:45)
--- NOTE | 2018-05-20 06:34 | P.PNNEU ---
Subjective Subjective Comments: mild del cid did not sleep well Active Medications: Active Medications Aspirin (Aspirin Chew) 81 mg PO DAILY [facility] Last Admin: 05/19/18 08:49 Dose: 81 mg Atorvastatin Calcium (Lipitor) 10 mg PO HS [facility] Last Admin: 05/19/18 23:11 Dose: Not Given Gabapentin (Neurontin) 300 mg PO DAILY [facility] Last Admin: 05/19/18 08:49 Dose: 300 mg Lacosamide (Vimpat) 100 mg PO BID [facility] Last Admin: 05/19/18 21:45 Dose: 100 mg Levetiracetam (Keppra) 1,000 mg PO BID [facility] Last Admin: 05/19/18 21:45 Dose: 1,000 mg Nifedipine (Procardia Xl) 60 mg PO BID [facility] Last Admin: 05/19/18 21:46 Dose: 60 mg Pantoprazole Sodium (Protonix) 20 mg PO DAILY PRN PRN Reason: Heartburn Last Admin: 05/19/18 08:49 Dose: 20 mg Sodium Chloride (Ns Flush) 2 ml IV.FLUSH PRN PRN PRN Reason: FLUSH AFTER USING IV ACCESS Allergies/Adverse Reactions: Allergies Allergy/AdvReac Type Severity Reaction Status Date / Time penicillin G Allergy Unknown Rash Verified 05/18/18 17:33 Physical Exam Vital signs: Vital Signs 05/19/18 07:04 05/19/18 08:27 05/19/18 10:46 Temperature Pulse Rate 41 L 44 L 41 L Respiratory Rate 18 18 18 Blood Pressure 158/93 H 178/103 H 166/103 H Pulse Oximetry 97 100 99 05/19/18 16:00 05/19/18 20:00 05/19/18 23:59 Temperature 97.9 F 98.2 F 98.5 F Pulse Rate 51 L 54 L 55 L Respiratory Rate 16 17 16 Blood Pressure 125/76 139/84 153/94 H Pulse Oximetry 98 98 98 05/20/18 04:00 Temperature 98.2 F Pulse Rate 53 L Respiratory Rate 16 Blood Pressure 149/80 H Pulse Oximetry 98 Intake & Output 05/19/18 05/19/18 05/20/18 06:59 18:59 06:59 Intake Total 1500 / 1500 Balance 1500 / 1500 Intake: IV 1000 / 1000 NS Inj 1,000 ML @ 70 mls/hr IV. 1000 / 1000 CONT .[id number] [facility] Rx#:[id number] Oral 500 / 500 Narrative: no new spells nl speech moves all well Objective Laboratory Results - last 24 hr 05/19/18 05/19/18 05/19/18 06:37 06:37 18:11 Sodium 144 Potassium 3.3 L Chloride 107 Carbon Dioxide 28.1 Anion Gap 9 BUN 12 Creatinine 0.74 Estimated GFR Greater than 89 POC Glucose 135 H Random Glucose 65 L Hemoglobin A1c 5.3 Calcium 8.7 Triglycerides 47 Cholesterol 154 LDL Cholesterol, Calc 57 HDL Cholesterol 88.0 H Cholesterol/HDL Ratio 1.75 Review/Management - Review/Management Plan: imp nothing new on mri some amyloid features echo nl bradycardia recent syncope plan cards to see fu eeg vimpat and keppra fu holter check standing bp i ordered but none on chart if cards clears and holter done and eeg looks ok and standing bp ok could dc on vimpat and keppra and fu office
[2018-05-20] MEDS: Gabapentin 300 MG Capsule PO SCH (10:20)
[2018-05-20] MEDS: levETIRAcetam 500 MG Tablet PO SCH (10:20)
[2018-05-20] MEDS: Lacosamide 100 MG Tablet PO SCH (10:20)
--- NOTE | 2018-05-20 10:28 | P.PNIM ---
Subjective Interval history: Pt complains of a headache today No nausea/vomiting She is still having some numbness and tingling in the right arm but the facial numbness resolved. Pt is rather tearful this morning. Physical Exam Vital signs: Vital Signs 05/19/18 10:46 05/19/18 16:00 05/19/18 20:00 Temperature 97.9 F 98.2 F Pulse Rate 41 L 51 L 54 L Respiratory Rate 18 16 17 Blood Pressure 166/103 H 125/76 139/84 Pulse Oximetry 99 98 98 05/19/18 23:59 05/20/18 04:00 05/20/18 07:28 Temperature 98.5 F 98.2 F 97.9 F Pulse Rate 55 L 53 L 59 L Respiratory Rate 16 16 16 Blood Pressure 153/94 H 149/80 H 150/93 H Pulse Oximetry 98 98 100 05/20/18 07:30 05/20/18 07:32 Temperature Pulse Rate 64 73 Respiratory Rate 16 16 Blood Pressure 157/97 H 133/93 H Pulse Oximetry 99 99 Intake & Output 05/19/18 05/20/18 05/20/18 18:59 06:59 18:59 Intake Total 1500 / 1500 Balance 1500 / 1500 Intake: IV 1000 / 1000 NS Inj 1,000 ML @ 70 mls/hr IV. 1000 / 1000 CONT .[id number] [facility] Rx#:[id number] Oral 500 / 500 Narrative: GENERAL: AAOx3, tearful this morning. CARDIO: Regular, narciso RESP: CTA bilaterally. No accessory muscle use. ABD: +BS, soft, non-tender, nondistended. EXT: No edema. Neuro: Speech normal. PHILLIPS Results - Labs CBC & Chem 7: 05/18/18 17:58 05/19/18 06:37 Laboratory Results - last 24 hr 05/19/18 05/19/18 05/19/18 06:37 06:37 18:11 BUN 12 Creatinine 0.74 Estimated GFR Greater than 89 POC Glucose 135 H Hemoglobin A1c 5.3 Triglycerides 47 Cholesterol 154 LDL Cholesterol, Calc 57 HDL Cholesterol 88.0 H Cholesterol/HDL Ratio 1.75 - Imaging Impressions Carotid Doppler Study 05/18/18 00:00 CONCLUSION: 1. Right Internal Carotid Artery: No significant stenosis or atherosclerotic plaque is visualized. 2. Left Internal Carotid Artery: No significant stenosis or atherosclerotic plaque is visualized. Chest X-Ray 05/18/18 17:21 CONCLUSION: Mild compensated cardiomegaly otherwise negative Head CT 05/18/18 17:21 CONCLUSION: 1. Decreased density in the cerebral white matter likely from demyelination. This is nonspecific. It could be secondary to small vessel ischemic change versus other underlying demyelinating conditions. 2. Acute hemorrhage or mass effect is not seen. Cervical Spine MRI 05/19/18 00:00 CONCLUSION: 1. There is focal left paracentral disc protrusion/extrusion at C4-5. 2. There is broad-based bulging as well as some focal right mild paracentral bulging/protrusion at C6-7. 3. Mild broad-based bulging C3-4 and C5-6. 4. Mild degenerative changes are seen throughout the cervical spine. Head MRI 05/19/18 00:00 CONCLUSION: 1. No definite acute areas of hemorrhage or mass effect are seen. 2. Multiple areas of signal throughout the cerebral and pontine white matter consistent with demyelination. This could be from underlying demyelinating conditions. Head MRA 05/19/18 00:00 CONCLUSION: 1. Negative MRA Cow ([place]) non contrast. 2. No evidence of aneurysm, vascular malformation, steno-occlusive disease or vasculopathy. Assessment and Plan - Assessment (1) CVA (cerebrovascular accident) Code(s): I63.9 - Cerebral infarction, unspecified Status: Acute Plan: Neurological deficit, transient - Pt is a 57 y/o female with HTN, depression and hx of hemorrhagic CVA in 2017 who presented to the ED at [facility] [place] on 05/18/18 with c/o right UE/LE tingling the evening prior and tingling in her right face that morning. She also was noted to have some slight facial droop with apparent difficulty expressing words at times. - Head CT (05/18/18) --> 1. Decreased density in the cerebral white matter likely from demyelination. This is nonspecific. It could be secondary to small vessel ischemic change versus other underlying demyelinating conditions. 2. Acute hemorrhage or mass effect is not seen. - Carotid US (05/18/18) --> 1. Right Internal Carotid Artery: No significant stenosis or atherosclerotic plaque is visualized. 2. Left Internal Carotid Artery: No significant stenosis or atherosclerotic plaque is visualized. - Cervical Spine MRI 05/19/18 --> 1. There is focal left paracentral disc protrusion/extrusion at C4-5. 2. There is broad-based bulging as well as some focal right mild paracentral bulging/protrusion at C6-7. 3. Mild broad-based bulging C3-4 and C5-6. 4. Mild degenerative changes are seen throughout the cervical spine. - Head MRI 05/19/18 --> 1. No definite acute areas of hemorrhage or mass effect are seen. 2. Multiple areas of signal throughout the cerebral and pontine white matter consistent with demyelination. This could be from underlying demyelinating conditions. - Head MRA 05/19/18 --> 1. Negative MRA Cow ([place]) non contrast. 2. No evidence of aneurysm, vascular malformation, steno-occlusive disease or vasculopathy. - 2D Echo (05/19/18) The estimated ejection fraction in the range of 60-65%. No regional wall motion abnormalities are present. Trace mitral valve regurgitation. - EEG is pending - Holter Monitor pending - Orthostatic BP ordered - Pt is on Vimpat 100mg BID and Keppra 1000mg BID per Neurology - Continue a low-dose aspirin. Pt refusing statin. - Will not be overly aggressive with anticoagulants based on her previous history of intracranial hemorrhage earlier this year. - Neuro checks - Telemetry with sinus bradycardia - Cardiology consulted Hypertension - BP better with Procardia resumed - She is normally on Procardia 60mg po daily and HCTZ Major depression - Chronic issue. - She recently established with PCP and started on Lexapro for chronic MDD last week. - Will hold the Lexapro for now but likely would benefit from SSRI and counseling. The exam, history, and the medical decision-making described in the above note were completed with the assistance of the mid-level provider. I reviewed and agree with the findings presented. I attest that I had a [id number] encounter with the patient on the same day, and personally performed and documented my assessment and findings in the medical record. will plan for dc home later today after cardiology eval and eeg resulted.
--- NOTE | 2018-05-20 13:49 | P.CONCA ---
History of Present Illness Consult date: 05/20/18 Requesting Physician: Dieudonne Mcpherson Reason for Consult: Syncope, bradycardia Primary Care Provider: UNKNOWN Chief Complaint: tingling, numbness, speech difficulty History of Present Illness: 57-year-old AA lady with history of HTN and hemorrhagic stroke November of this year admitted after presenting to the ER 05/19 with c/o right UE/LE as well as right face tingling that started appx 10 PM on 05/18/18. Patient reports she was home watching TV the night of 05/18 and noted some tingling in her right upper extremity and face as well as diplopia and then shut the TV off and went to sleep. She awoke the next morning feeling at baseline and walked to a health clinic to have scheduled labs completed. Once she returned home, she again developed the tingling sensation in the right UE/ LE and face with facial droop. She then presented to her PCP's office for evaluation and was sent to the ER for evaluation of suspected stroke syndrome. Since she has been in the ER her paresthesias initially persisted in the right upper extremity but tingling resolved in her face and no more speech problems. She has some tingling in the right lower extremity but believes this has improved as well. She now reports that all tingling has resolved except for a small portion of numbness in her lower lip. She recently established with PCP and started on lexapro for acute on chronic MDD last week. Outpatient records reveal that she has been thinking of dying often daily but did not have a plan of suicidal action. No aggravating or relieving factors. No other complaints. No chest pain or shortness of breath. She reports that 2 weeks ago she was playing with her boyfriend at her home and he lifted her up into the air quickly and she suddenly got lightheaded and nauseous and asked him to put her down. While returning her to her feet, he let go and she fell to her knees and then had a syncopal event with loss of consciousness. She awoke a few moments later in her bedroom, where her boyfriend brought her. She has had no other syncope, near syncope or lightheadedness. No family hx of SCD. Echocardiogram completed in 11/2017 was essentially normal. Telemetry monitoring in the ER shows episodes of sinus bradycardia in the mid 40s with increase of HR to the 90s at times. She is asymptomatic currently. ECG is nonischemic. Stroke work up with head CT and MRI /MRA was unremarkable for acute pathology. Prior carotid vascular evaluation was unrevealing for obstructive pathology. Her laboratories are unremarkable. Review of Systems Comments: 10 pt ros negative other than noted in the hpi aside from emotional lability. She was very emotional, crying at times throughout evaluation, wanting to leave hospital and go home. [facility] - History History Provided By: Patient, Medical Record - Medical History Medical History: Medical History (Last Reviewed 05/20/18 @ 13:38 by Kodak Potter DO) Acute diverticulitis Cerebral vascular accident Depression Ectopic History of open sigmoidectomy Hypertension Seizure - Surgical History Surgical History: Surgical History (Last Reviewed 05/20/18 @ 13:38 by Kodak Potter DO) History of gastric bypass - Family History Family History: Family History (Last Reviewed 05/20/18 @ 13:38 by Kodak Potter DO) Other CKD (chronic kidney disease) Family history of hypertension - Tobacco History Second Hand Smoke Exposure: Yes Tobacco Use In Past 30 Days: Yes Smoking Status: Current every day smoker Tobacco Type: Cigarettes Cigarettes Per Day: 10 Years Smoked: 40 - Alcohol History How Often Do You Have a Drink Containing Alcohol: Never - Substance Use History Substance History: No History of Abuse - Travel History History of Recent Travel: No Recent Travel Out of the Country Within the Last 8 Weeks: No - Immunization History Tetanus Immunization: >5 Years Hx Influenza Vaccine This Season: No Medications and Allergies Active Medications: Active Medications Aspirin (Aspirin Chew) [address] [facility] Last Admin: 05/20/18 10:21 Dose: 81 mg Atorvastatin Calcium (Lipitor) [address] [facility] Last Admin: 05/19/18 23:11 Dose: Not Given Gabapentin (Neurontin) [address] [facility] Last Admin: 05/20/18 10:20 Dose: 300 mg Lacosamide (Vimpat) [address] [facility] Last Admin: 05/20/18 10:20 Dose: 100 mg Levetiracetam (Keppra) 1,[address] [facility] Last Admin: 05/20/18 10:20 Dose: 1,000 mg Nifedipine (Procardia Xl) [address] [facility] Last Admin: 05/20/18 10:21 Dose: 60 mg Pantoprazole Sodium (Protonix) 20 mg PO DAILY PRN PRN Reason: Heartburn Last Admin: 05/19/18 08:49 Dose: 20 mg Sodium Chloride (Ns Flush) 2 ml IV.FLUSH PRN PRN PRN Reason: FLUSH AFTER USING IV ACCESS Allergies Allergy/AdvReac Type Severity Reaction Status Date / Time penicillin G Allergy Unknown Rash Verified 05/18/18 17:33 Home Medications Medication Instructions Recorded Confirmed Type acetaminophen [Tylenol Extra 1,000 mg PO Q6H PRN 05/18/18 05/18/18 History Strength] escitalopram oxalate [Lexapro] 5 mg PO DAILY 05/18/18 05/18/18 History esomeprazole magnesium 20 mg PO DAILY PRN 05/18/18 05/18/18 History gabapentin 300 mg PO DAILY 05/18/18 05/18/18 History hydrochlorothiazide 25 mg PO DAILY 05/18/18 05/18/18 History levetiracetam [Keppra] 1,000 mg PO BID 05/18/18 05/18/18 History nifedipine 60 mg PO BID 05/18/18 05/19/18 History Exam Vital signs: Vital Signs 05/19/18 16:00 05/19/18 20:00 05/19/18 23:59 Temperature 97.9 F 98.2 F 98.5 F Pulse Rate 51 L 54 L 55 L Respiratory Rate 16 17 16 Blood Pressure 125/76 139/84 153/94 H Pulse Oximetry 98 98 98 05/20/18 04:00 05/20/18 07:28 05/20/18 07:30 Temperature 98.2 F 97.9 F Pulse Rate 53 L 59 L 64 Respiratory Rate 16 16 16 Blood Pressure 149/80 H 150/93 H 157/97 H Pulse Oximetry 98 100 99 05/20/18 07:32 05/20/18 11:00 Temperature 98.1 F Pulse Rate 73 60 Respiratory Rate 16 16 Blood Pressure 133/93 H 125/87 Pulse Oximetry 99 99 Intake & Output 05/19/18 05/20/18 05/20/18 18:59 06:59 18:59 Intake Total 1500 / 1500 Balance 1500 / 1500 Intake: IV 1000 / 1000 NS Inj 1,000 ML @ 70 mls/hr IV. 1000 / [id number] [facility] Rx#:[id number] Oral 500 / 500 - Additional findings Additional findings: General: and O x3, emotional the labile, crying at times throughout the interview HEENT: Normocephalic atraumatic, pupils equal round and reactive to light Neck: Supple Cardiovascular: Regular, + S1/S2, no murmurs rubs or gallops, no elevation in JVP Chest: Lungs clear to auscultation bilaterally no wheeze, rales, rhonchi, nontender to palpation anteriorly Abdomen: Soft, nontender EXTREMITIES: No clubbing, cyanosis, or edema. No joint tenderness, effusion, or edema noted. No calf tenderness. Vascular: 2+ radial, PT/DP pulses bilaterally Neurologic: Slight right sided facial droop otherwise grossly nonfocal, emotional lability Results 05/18/18 17:58 05/19/18 06:37 Assessment and Plan - Plan Assessment: Sinus bradycardia: asymptomatic, avoid AVN agents for hypertension management Positional syncope: single episode, sounds most consistent with orthostasis. Echocardiogram 05/19 essentially normal and no arrhythmias on telemetry noted Stroke syndrome: with persistent numbness of her lower lip and right facial droop currently. Cerebral vascular imaging negative Hypertension: Reasonably controlled Major depression: She is currently emotionally labile and reports feeling depressed, recently started on Lexapro. Recommendations: No indication for pacemaker placement. Maintain adequate hydration and slow positional changes as discussed with patient in detail May benefit from outpatient cardiac event monitoring. She reports that she is moving to [place] in approximately 1 week. We could either attempt to set her up with a cardiac event monitor prior to her move or she could establish care with a new provider in the near future who could obtain cardiac event monitoring. Remainder of care per primary team, including possible psychiatric consultation for depression and emotional lability, possible suicidal ideation I will sign off, please contact with any further questions
--- NOTE | 2018-05-20 21:59 | MG ---
cc: Rhina Goldberg MD, Dalia MD EEG NUMBER [id number] REFERRING PHYSICIAN: Dr. Schaeffer HISTORY: Photic stimulation, awake. CT decreased density white matter from possible white matter disease, admitted with tingling, cold feeling on her right arm, went to her right hand and face, leg. History of seizures, , CVA, depression, hemorrhage, left temporal lobe in the past. MEDICATIONS: Aspirin, Lipitor, Vimpat. Keppra. Nifedipine. Protonix. DESCRIPTION OF RECORD: The patient has normal background of 8 Hz, 20-60 microvolts. Symmetrical background. EKG is artifactual, cannot be interpreted. Myogenic artifact from eyes noted and overall symmetrical background. Photic stimulation with a posterior driving response seen. IMPRESSION: Overall, normal appearing electroencephalogram. No epileptiform features. Clinical correlation. MD MARYA Durand/ , 09:32 PM , 09:58 PM
--- NOTE | 2018-05-23 12:27 | HM ---
Date Performed: 05/19/2018 Time Performed: 18:27:00 HOOKUP DATE: 05/19/18 06:27:00 PM [facility] ANALYSIS START TIME: 05/19/2018 6:32:00 PM ANALYSIS END TIME: 05/20/2018 3:08:26 PM PATIENT AGE: 57 PATIENT HEIGHT: 65 PATIENT WEIGHT: 120 DRUG LIST: CVA PATIENT DIAGNOSIS: ROOM H89 TEST NARRATIVE: The patient's average heart rate was 54 BPM. No episodes of tachycardia wer e noted. Heart rates less than 50 BPM were noted 56% of the time. No pauses exceeding 2.0 second s were noted. 2 ventricular ectopics, which represented < 1% of the total beat count, were noted. The highest ventricular ectopic frequency occurred from 04:00 AM to 05:00 AM Fri. During this time 1 VE(s) occurred. Ventricular ectopics were observed as 2 isolated beat(s) only. No couplets or ru ns were noted. 21 supraventricular ectopics, which represented < 1% of the total beat count, were noted. The highest supraventricular ectopic frequency occurred from 04:00 AM to 05:00 AM Fri. Duri ng this time 10 SVE(s) occurred. No episodes of ST depression (defined as -1.0 mm or more) were n oted in channel 1. No episodes of ST depression (defined as -1.0 mm or more) were noted in channel 2 . No episodes of ST depression (defined as -1.0 mm or more) were noted in channel 3. NO DIARY ENTRIE S WERE RECORDED BY THE PATIENT TEST INTERPRETATION: Sinus rhythm Multiple episodes of sinus bradycardia from 9pm to around 6 AM. Heart rate dropped to around 45 bpm No pause No ventricular tachycardia No supraventricular tachycardia observed There is no entry in the diary Signed by : Ronnell Khan
== END 2018-05-20 15:22 | disposition home or self-care (01) ==
LOC: NEPHCDU 17:08 → NEDA 17:08 → NEPC 17:08 → NEDH 05-19 01:22 → NEDA 05-19 12:10 → NEPHCDU 05-19 14:01
PROVIDERS: ADMIT Hospitalist; ATTEND Hospitalist